=== PATIENT | female | born 1945 | race Caucasian/White ===

== ENCOUNTER 2025-08-06 13:00 | Outpatient (REF) | payer MEDICARE, SELFPAY ==
--- NOTE | 2025-08-06 13:04 | EMG_ITS ---
Chief complaint: Started noticing bilateral hand numbness a few months ago. Denies weakness. Denies neck pain. Started noticing left foot tingling more recently. No gait change. On exam, I did not note any atrophy, weakness or hyperreflexia. Reason for referral: Evaluate for neuropathy Referred by: Dr. Brewer Procedure done: Bilateral upper extremities NCS/EMG Precautions and/or limitations: None The limb temperature was monitored continuously and remained between 32-36 degrees C during the performance of the NCS. Nerve Conduction Studies Anti Sensory Summary Table ?Stim Site NR Onset (ms) Norm Onset (ms) Peak (ms) Norm Peak (ms) O-P Amp (?V) Norm O-P Amp Site1 Site2 Delta-0 (ms) Dist (cm) Yeison (m/s) Norm Yeison (m/s) Left Median Anti Sensory (2nd Digit) Wrist ? 3.3 4.3 <3.6 6.9 >10 Wrist 2nd Digit 3.3 14.0 42 Right Median Anti Sensory (2nd Digit) Wrist ? 4.3 5.4 <3.6 9.1 >10 Wrist 2nd Digit 4.3 14.0 33 Right Radial Anti Sensory (Thumb) Forearm ? 2.2 2.8 <3.1 10.1 Forearm Thumb 2.2 0.0 ? 2.4 3.1 9.9 Left Ulnar Anti Sensory (5th Digit) Wrist NR <3.7 >15.0 Wrist 5th Digit 14.0 Right Ulnar Anti Sensory (5th Digit) Wrist ? 2.9 3.7 <3.7 7.8 >15.0 Wrist 5th Digit 2.9 14.0 48 Motor Summary Table ?Stim Site NR Onset (ms) Norm Onset (ms) O-P Amp (mV) Norm O-P Amp iAmp (mV) Amp (1st) (%) Site1 Site2 Delta-0 (ms) Dist (cm) Yeison (m/s) Norm Yeison (m/s) Left Median Motor (Abd Poll Brev) Wrist ? 4.0 <3.9 6.0 >4.5 7.2 100.0 Elbow Wrist 5.0 19.5 39 >45 Elbow ? 9.0 5.0 6.3 83.3 Right Median Motor (Abd Poll Brev) Wrist ? 5.4 <3.9 7.0 >4.5 8.6 100.0 Elbow Wrist 4.5 20.0 44 >45 Elbow ? 9.9 6.5 8.3 92.9 Left Ulnar Motor (Abd Dig Minimi) Wrist ? 3.5 <3.0 4.3 >5 4.9 100.0 B Elbow Wrist 4.0 17.0 43 >45 B Elbow ? 7.5 3.4 4.2 79.1 A Elbow B Elbow 2.1 10.0 48 >45 A Elbow ? 9.6 3.2 4.0 74.4 Right Ulnar Motor (Abd Dig Minimi) Wrist ? 3.5 <3.0 4.9 >5 5.7 100.0 B Elbow Wrist 4.4 18.0 41 >45 B Elbow ? 7.9 4.3 5.4 87.8 A Elbow B Elbow 1.5 10.0 67 >45 A Elbow ? 9.4 4.4 5.5 89.8 Right Ulnar (FDI) Motor (FDI) Wrist ? 5.2 <3.0 10.2 >5 11.7 100.0 B Elbow Wrist 4.6 17.5 38 >45 B Elbow ? 9.8 9.5 11.1 93.1 A Elbow B Elbow 1.7 10.0 59 >45 A Elbow ? 11.5 9.2 10.8 90.2 EMG ?Side Muscle Nerve Root Ins Act Fibs Psw Amp Dur Poly Recrt Int Pat Comment Right 1stDorInt Ulnar C8-T1 Nml Nml Nml Nml Nml 0 Nml Complete Right FlexCarRad Median C6-7 Incr 1+ 1+ Nml Nml 0 Nml Complete Right FlexCarpiUln Ulnar C8,T1 Nml Nml Nml Nml Nml 0 Nml Complete Right Biceps Musculocut C5-6 Incr 1+ 1+ Nml Nml 0 Nml Complete Right Triceps Radial C6-7-8 Nml Nml Nml Nml Nml 0 Nml Complete Right Deltoid Axillary C5-6 Incr 1+ 1+ Nml Nml 0 Nml Complete Left 1stDorInt Ulnar C8-T1 Nml Nml Nml Nml Nml 0 Nml Complete Left FlexCarRad Median C6-7 Incr Nml Nml Nml Nml 0 Nml Complete crd Left FlexCarpiUln Ulnar C8,T1 Nml Nml Nml Nml Nml 0 Nml Complete Left Biceps Musculocut C5-6 Nml Nml Nml Nml Nml 0 Nml Complete Left Triceps Radial C6-7-8 Nml Nml Nml Nml Nml 0 Nml Complete Left Deltoid Axillary C5-6 Nml Nml Nml Nml Nml 0 Nml Complete Paraspinal EMG ?Side Muscle Nerve Root Ins Act Fibs Psw Comment Right Cervical Upper Rami Nml Nml Nml Right Cervical Mid Rami Incr 1+ 1+ Right Cervical Lower Rami Incr 1+ 1+ Left Cervical Upper Rami Nml Nml Nml Left Cervical Mid Rami Incr Nml Nml Left Cervical Lower Rami Incr 1+ 1+ FINDINGS: Right median motor nerve showed prolonged distal latency, normal amplitude and slow conduction velocity. Right ulnar motor nerve showed prolonged distal latency, small amplitude and slow conduction velocity distally. No conduction block across the elbow. Right median sensory nerve showed prolonged peak latencies and small amplitude. Right ulnar sensory nerve showed small amplitude. Right radial sensory nerve within normal. Left median motor nerve showed prolonged distal latency, normal amplitude and normal conduction velocity. Left ulnar motor nerve showed prolonged distal latency, normal amplitude and slow conduction velocity distally. No conduction block across the elbow. Left median sensory nerve showed prolonged peak latencies and small amplitude. Left ulnar sensory nerve absent response. Concentric needle EMG was performed in selected muscles of the bilateral upper extremities and cervical paraspinals. Study revealed signs of electric abnormalities as shown in the table above. Left FCR showed increased insertional activity, and CRDs. Right deltoid, biceps and FCR showed increased insertional activity, PSWs and fibrillations. Bilateral mid and lower cervical paraspinals showed increased insertional activity, PSWs and fibrillations. IMPRESSION: 1. This is an abnormal study. 2. 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 3. There are electrodiagnostic findings suggestive of C5-6 acute on chronic radiculopathy. CLINICAL COMMENT: Study above shows bilateral median neuropathy, consistent with Carpal Tunnel Syndrome. Also shows bilateral ulnar neuropathies, most likely chronic. Although, we should account for changes seen with advanced age. However I could not rule out, and it is concerning, that there were acute and chronic denervation seen on C5/C6 innervated muscles, suggestive of ongoing radiculopathy. Further clinical correlation recommended. Thank you for your kind referral. Lorene Morse MD, DONNIE Board Certified, [place] [employer] (ABPMR) Board Certified, [place] [employer] (ABEM) CODIN [phone] x 2 MTDD
--- OUTSIDE RECORDS SUMMARY | 2025-08-06 16:37 | XMS_ITS | Data Portability ---
Author Organization [place] - [facility], [facility] - INPATIENT Address [address] [place] [address] Care Team Providers Care Illustrator Set Name Role Phone RAJI JONESEMILIANO Primary Care Provider Assessment Encounter Date Assessment Date Assessment LastModified by Organization Details LastModified Time 10/01/2019 10/01/2019 IMPRESSION: Monica is a 73-year-old female who does have large irreparable rotator cuff tears on her bilateral shoulders. She is not interested in proceeding with surgical intervention. She is actually compensating quite well, and I do not feel that she would be completely satisfied with the outcome of shoulder replacement surgery at this time. I have suggested continued conservative management, including activity modification and exercises as well as possible cortisone injections. She is interested in proceeding with bilateral cortisone injections. We proceeded today. TREATMENT GIVEN: After discussion of the risks including, but not limited to infection, localized soreness and swelling, reaction to medications, the patient elected to proceed with a right subacromial and glenohumeral cortisone injection. Confirmed that the patient does not have history of prior adverse reactions, active infections, or relevant allergies. There was no erythema, or warmth, and the skin was clear. The skin was sterilized with alcohol & Betadine. [employer] Ultrasound was used to ensure accuracy of placement of the injection. A 25-gauge needle was used to inject 1 cc of Depo-Medrol (40 mg/mL) and 1 cc of 2% lidocaine under ultrasound guidance using sterile gel and a sterile probe using a posterior approach. Injection into the subacromial space was visualized and confirmed on ultrasound. Direction was turned to the glenohumeral joint. Topical anesthesia was achieved with 3 cc of 2% lidocaine on a 25-gauge needle. [employer] Ultrasound was used to ensure accuracy of placement of the injection. After re-prepping with Betadine, a 22-gauge spinal needle was used inject 2 cc of Depo-Medrol (40 mg/mL) and 3 cc of 2% lidocaine under ultrasound guidance into the glenohumeral joint with sterile gel and a sterile probe, through a medial approach. Injection was visualized and confirmed to be in the correct location on ultrasound. The injection was completed without complication and Band-Aids were applied. The patient tolerated the procedure well and was instructed to avoid strenuous activity for the next 24-48 hours and use ice, NSAIDs or Tylenol for pain as needed. The patient will call immediately with any signs of infection or allergic reaction. TREATMENT GIVEN: After discussion of the risks including, but not limited to infection, localized soreness and swelling, reaction to medications, the patient elected to proceed with a left subacromial and glenohumeral cortisone injection. Confirmed that the patient does not have history of prior adverse reactions, active infections, or relevant allergies. There was no erythema, or warmth, and the skin was clear. The skin was sterilized with alcohol & Betadine. [employer] Ultrasound was used to ensure accuracy of placement of the injection. A 25-gauge needle was used to inject 1 cc of Depo-Medrol (40 mg/mL) and 1 cc of 2% lidocaine under ultrasound guidance using sterile gel and a sterile probe using a posterior approach. Injection into the subacromial space was visualized and confirmed on ultrasound. Direction was turned to the glenohumeral joint. Topical anesthesia was achieved with 3 cc of 2% lidocaine on a 25-gauge needle. [employer] Ultrasound was used to ensure accuracy of placement of the injection. After re-prepping with Betadine, a 22-gauge spinal needle was used inject 2 cc of Depo-Medrol (40 mg/mL) and 3 cc of 2% lidocaine under ultrasound guidance into the glenohumeral joint with sterile gel and a sterile probe, through a medial approach. Injection was visualized and confirmed to be in the correct location on ultrasound. The injection was completed without complication and Band-Aids were applied. The patient tolerated the procedure well and was instructed to avoid strenuous activity for the next 24-48 hours and use ice, NSAIDs or Tylenol for pain as needed. The patient will call immediately with any signs of infection or allergic reaction. PLAN: She will follow up with me on an as-needed basis. [email or web address] Not available 2019 00:53:02 10/20/2020 10/20/2020 ImaginV (grashey, axillary, humerus) of bilateral shoulders demonstrate no degenerative changes. There is no superior migration humeral head, and Reyez's line is intact. Assessment/Plan: 75-year-old female presents with bilateral rotator cuff tears. At this point, Monica seems to be doing well with conservative treatment. We briefly discussed PRP, but I could not guarantee it would improve her shoulder pain, therefore we did not pursue PRP injection at this time. We proceed with bilateral intra-articular and subacromial injections under ultrasound guidance. She noted immediate postinjection relief. Please see procedure note. She will continue activities as tolerated, with modifications as needed. She will keep me apprised of her status, follow-up as needed for repeat injections. PROCEDURE: Bilateral shoulder injection MEDICATION: 2 mL Depo-Medrol 40 mg/1 mL, and 2 mL of 0.25% bupivacaine plain (glenohumeral), 1 mL Depo-Medrol 40 mg/1 mL and 1 mL 0.25% bupivacaine plain (subacromial) each shoulder TREATMENT GIVEN: I confirmed that the patient does not have a history of prior adverse reactions, active infections, or relevant allergies. There was no erythema or warmth, and the skin was clear. After discussion of the risks including, but not limited to infection, localized soreness and swelling, reaction to medications, the patient consented to proceeding with the procedure. Under sterile conditions, the shoulder was prepped with alcohol and Betadine. Sterile ultrasound gel and utilized the [employer] Ultrasound to ensure accurate needle placement. The skin was anesthetized with cold spray. Using a medial approach and a 20-gauge spinal needle, the glenohumeral injection was performed. The needle was then redirected to the subacromial space, placement confirmed with the ultrasound, and the subacromial injection was performed. Ultrasound images were scanned into the patient's chart. The injection was completed without complication and a Band-Aid was applied. The procedure was repeated on the opposite shoulder. The patient tolerated the procedure well and was instructed to avoid strenuous activity for the next 24-48 hours and use ice, NSAIDs, or Tylenol for pain as needed. This visit is a kmon-wq-wfln visit during the COVID-19 pandemic. Based on my clinical judgment, I felt that this visit could not be provided safely and appropriately via TeleHealth. Based on available information prior to presentation, the patient had a high risk of significant worsening and potential functional impairment affecting ADLs if the visit was not completed today. The patient was seen in the office after following PPE use, Workforce Safety, Patient Safety and Infection Control protocols for all services provided today in accordance with [facility] and CDC Guidelines. There was additional practice expense incurred due to the Public Health Emergency. This additional expense includes but is not limited to: - Additional clinical staff and medical technical project coordinator time for pre-screening - Time spent reviewing COVID social distancing guidelines, precautions, instructions, and signage - Patient symptom checking upon arrival - Application, removal, and purchasing of additional PPE - Additional cleaning of exam room, equipment, supplies, as well as cleaning supplies for that purpose. This note was dictated with Melly. Please excuse any errors in spelling/transcr iption, which may have changed the context of the sentence. [email or web address] Not available 02/25/2021 13:23:59 07/03/2023 07/03/2023 ASSESSMENT Right shoulder chronic cuff tear seen on MRI. On the left, I will get an MRI to assess her reason for pain. In the meantime, she requested a cortisone injection because she is having a lot of pain in the left side and also an MRI has not yet been done, so we will do the injection. I confirmed that the patient does not have a history of prior adverse reactions, active infections, or relevant allergies. There was no erythema or warmth, and the skin was clear. After discussion of the risks including, but not limited to infection, localized soreness and swelling, reaction to medications, the patient consented to proceeding with the regimen. Under sterile conditions with the use of alcohol and Betadine prep on the left shoulder and ethyl chloride spray on the skin, I applied sterile ultrasound gel and utilized the [employer] Ultrasound to ensure accurate needle placement. Topical anesthesia was achieved by use of ethyl chloride spray, followed by the placement of 2 cc of Kenalog, and 2 cc of 2% lidocaine into the glenohumeral joint and subacromial space without incident. The needle was held in plane with the curvilinear ultrasound probe. Ultrasound images were scanned into the patient's chart. The injection was completed without complication and a Band-Aid was applied. The patient tolerated the procedure well and was instructed to avoid strenuous activity for the next 24-48 hours and use ice, NSAIDs, or Tylenol for pain as needed. I will get a left shoulder MRI and I will see her back after the left shoulder MRI. [email or web address] Not available 07/04/2023 12:27:00 07/19/2024 07/19/2024 Imaging: A left hip MRI conducted at [facility] on 06/15/2024 was independently reviewed which demonstrates mild degeneration of the joints without full-thickness cartilage loss. There is tendinopathy of the abductors with low-grade partial-thicknes s tearing. Assessment: Lateral left hip pain due to abductor tendinopathy and partial-thicknes s tearing. Plan: The findings were reviewed with the patient. Discussed that I would recommend moving forward with conservative measures including Tenex. We discussed that ultimately surgery is a last resort and typically reserved for full-thickness tears or partial-thicknes s tears that have failed extensive conservative measures. We discussed the significant recovery of surgical intervention which she hopes to avoid. She will contact Dr. Barr to make plans to move forward with Tenex. All questions were answered. [email or web address] Not available 07/31/2024 20:07:11 Plan of Treatment Reminders Order Date Submit Date Provider Last Modified By Organization Details Last Modified Time Details Appointments None recorded. Lab None recorded. Referral None recorded. Procedures None recorded. Surgeries None recorded. Imaging MRI, shoulder, w/o contrast - R/o LT shoulder impingement PLEASE INCLUDE T2 SAGITAL and give patient a disk to hand carry to office *PLEASE CALL PATIENT TO SCHEDULE *PAS 2022 023 elana 2 [facility] ([facility]), [address], [place], [address], 3 09:20:00 Medication Orders Kenalog 40 mg/mL suspension for injection 2022 023 [email or web address] [facility] #[id number], [address] [place], [address], 4 10:39:33 Patient TargetsNo targets recorded. Patient InstructionsNo instructions recorded. Reason for Referral None Reported. Results Created Date Observation Date Name Description Value Unit Range Abnormal Flag Note LastModifiedBy Organization Detail LastModifiedTime 10/01/20 19 10/01/2019 josette MILLER http:/ [email or web address] ntegra tionPr ocesso r.[email or web address] ?CMD=O PENSTU DY&ACC ESSION =[id number], [address], 10/01/2019 14:56:45 10/01/20 19 10/01/2019 liliana MILLER http:/ [email or web address] ntegra tionPr ocesso r.aspx ?CMD=O PENSTU DY&ACC ESSION =[id number] [id number], [address], 10/01/2019 14:56:45 10/20/20 20 10/20/2020 josette MILLER http:/ [email or web address] ntegra tionPr ocesso r.aspx ?CMD=O PENSTU DY&ACC ESSION =76[id number] Shoulder [address], [address], 10/20/2020 17:21:25 10/20/20 20 10/20/2020 liliana MILLER http:/ [email or web address] ntegra tionPr ocesso r.aspx ?CMD=O PENSTU DY&ACC ESSION =[id number] [id number] [address] Shoulder [address], [address], 10/20/2020 17:21:25 12/01/19 21 10/20/2020 ultra sound bi nce for injec tion (PROC ) No observ ation record ed. [email or web address] Not Available 2020 10:55:33 12/01/19 21 10/20/2020 ultra sound bi nce for injec tion (PROC ) No observ ation record ed. [email or web address] Not Available 2020 10:57:22 12/01/19 21 10/20/2020 ultra sound bi nce for injec tion (PROC ) No observ ation record ed. Not Available 2020 10:58:09 08/21/20 23 08/20/2023 MRI, josette horvath, w/o contr ast [facility] Access ion Number : [id number] [address] t Name: Monica Sinclair Record Number : [id number] Date of : 1944 Date of Exam: 2022 Referr ing Physic sunitha: Rox Salas [facility] [address] [place] [address] Exam: MR Should er (C-) CPT 14040 - Left Room Descri ption: [place] GE Pion 3T MR Should er (C-) CPT 19903 CLINIC AL INDICA TION: Left should er pain TECHNI QUE: MRI of the left should er was perfor med withou t intrav enous contra st. COMPAR MILLER: None. FINDIN GS: Image qualit y is subopt imal due to motion artifa ct AC joint: Modera te hypert rophic change s of the AC joint. Acromi on is type I and demons trates latera l downsl oping. Rotato r cuff: Near full thickn ess tear of the supras pinatu s tendon is some intact is manager ior fibers . Torn fibers are retrac venu to the medial third of the lakisha l head. Severe subsca pulari s tendin osis. Infras pinatu s and teres minor tendon s appear intact . No eviden ce of rotato r cuff muscle atroph y or fatty infilt ration Edema signal within the is manager ior portio n of the deltoi d and keepin g with grade 1 strain Glenoi d labrum and biceps tendon : Tendin osis and probab le longit udinal split tear of the intra- articu lar biceps segmen t. The extra- articu lar portio n is visual ized within the bicipi pastor groove . No eviden ce of displa hugh labral tear on nonart hrogra phic evalua tion. Articu lar cartil age: The articu lar cartil age is of normal thickn ess. No focal defect s are seen. Bone: Subcho ndral cystic change s within the lakisha l head deep to the infras pinatu s and subsca pulari s footpr int. No eviden ce of hypoin tense fractu re line. Promin ent axilla ry lymph nodes measur ing up to 2.1 x 0.8 cm deep to the pector radha minor muscle (level 2) IMPRES SYED: Near full-t hickne ss tear of the supras pinatu s tendon with some intact is manager ior fibers remain ing Severe subsca pulari s tendin osis Tendin osis and probab le longit udinal split tear of the intra- articu lar biceps segmen t Grade 1 deltoi d muscle strain Promin ent axilla ry lymph nodes measur ing up to 2.1 x 0.8 cm the level 2 which are nonspe cific but may be reacti ve in nature . Clinic al correl ation is recomm ended. Electr onical ly Signed By: García faustinedrosian [facility] ([facility]) [address], [place], [address], 10/25/2024 11:28:16 07/19/20 24 MRI, hip, w/o contr ast No observ ation record ed. [email or web address] Not Available 2023 10:10:44 07/19/20 24 MRI, shoul yuliet, w/o contr ast No observ ation record ed. Not Available 2023 10:11:44 Result Notes Documentation Provider Name and Address Organization Details Recorded Time Xr, Shoulder : [email or web address]?CMD=OPENSTUDY& Viviana orona [place] - [facility] 10/01/2019 14:56:45 Xr, Humerus : [email or web address]?CMD=OPENSTUDY& Viviana orona [facility] [place] 10/01/2019 14:56:45 Xr, Shoulder : [email or web address]?CMD=OPENSTUDY& DONAVON LAI [address] [facility] [place] 10/20/2020 17:21:25 Xr, Humerus : [email or web address]?CMD=OPENSTUDY& DONAVON LAI [address] [facility] [place] 10/20/2020 17:21:25 Mri, Shoulder, W/o Contrast : [facility] Accession Number: [id number] Patient Name: Monica Sinclair Date of : 1945 Date of Exam: 08-20-2023 Referring Physician: [facility] [address] [place] [address] Exam: MR Shoulder (C-) CPT 10059 - Left Room Description: [address] MR Shoulder (C-) CPT 43666 CLINICAL INDICATION: Left shoulder pain TECHNIQUE: MRI of the left shoulder was performed without intravenous contrast. COMPARISON: None. FINDINGS: Image quality is suboptimal due to motion artifact AC joint: Moderate hypertrophic changes of the AC joint. Acromion is type I and demonstrates lateral downsloping. Rotator cuff: Near full thickness tear of the supraspinatus tendon is some intact posterior fibers. Torn fibers are retracted to the medial third of the humeral head. Severe subscapularis tendinosis. Infraspinatus and teres minor tendons appear intact. No evidence of rotator cuff muscle atrophy or fatty infiltration Edema signal within the posterior portion of the deltoid and keeping with grade 1 strain Glenoid labrum and biceps tendon: Tendinosis and probable longitudinal split tear of the intra-articular biceps segment. The extra-articular portion is visualized within the bicipital groove. No evidence of displaced labral tear on nonarthrographic evaluation. Articular cartilage: The articular cartilage is of normal thickness. No focal defects are seen. Bone: Subchondral cystic changes within the humeral head deep to the infraspinatus and subscapularis footprint. No evidence of hypointense fracture line. Prominent axillary lymph nodes measuring up to 2.1 x 0.8 cm deep to the pectoralis minor muscle (level 2) IMPRESSION: Near full-thickness tear of the supraspinatus tendon with some intact posterior fibers remaining Severe subscapularis tendinosis Tendinosis and probable longitudinal split tear of the intra-articular biceps segment Grade 1 deltoid muscle strain Prominent axillary lymph nodes measuring up to 2.1 x 0.8 cm the level 2 which are nonspecific but may be reactive in nature. Clinical correlation is recommended. Electronically Signed By: García orona [facility] [place] 10/25/2024 11:28:16 Problems Name Problem SNOMED Code Status Onset Date Resolution Date Notes Provider Name and Address Organization Details Recorded Time Osteoarthritis 181102260 Active 2018 Lonny orona [facility] [place] 9 16:03:14 Full thickness rotator cuff tear 404675537 Active 2019 LATOYA ORDAZ [address] [place] [address], [phone] [place] 0 14:01:06 Problem Notes None recorded. Procedures Surgical History Date Name Laterality Status Provider Name and Address Organization Details Recorded Time 10/14/19 90 Orthopaedic Surgery completed Leonor Crisostomo [facility] [place] 07/19/2024 10:28:33 10/14/19 88 Orthopaedic Surgery completed Cortney Dong [facility] [place] [facility] 07/03/2023 14:48:24 Imaging Results None recorded. Procedure Notes None recorded. Medical Equipment None Reported. Allergies Allergen ID Allergen Name Allergen Category Reaction Reaction Severity Criticality Documentation Date Start Date Code Code System Note Provider Name and Address Organization Details Recorded Time 681496 Demerol medicatio n Not available Not available Not available 07/19/2024 34145 1 RxNorm Renay orona [place] - [facility] 4 10:39:39 Medications Name Sig Start Date Stop Date Status Note LastModified by Organization Details LastModified Time azithromyc in 250 mg tablet 07/19 completed Not Available Not Available Not Available valacyclov ir 1 gram tablet 10/01 completed Not Available Not Available Not Available meloxicam 15 mg tablet TAKE 1 TABLET EVERY DAY BY ORAL ROUTE AFTER MEAL(S). active Not Available Not Available No t Available prednisone 20 mg tablet TAKE 2 TABLETS BY MOUTH EVERY DAY FOR 3 DAYS 07/19 completed Not Available Not Available Not Available Kenalog 40 mg/mL suspension for injection Take 2 mL by injectio n route. 07/19 completed US Guided Not Available Not Available Not Available ramipril 2.5 mg capsule Take 1 capsule every day by oral route. active Not Available Not Available No t Available mupirocin 2 % topical ointment APPLY TO AFFECTED AREA 3 TIMES A DAY 07/02 completed Not Available Not Available Not Available hydroxychl oroquine 200 mg tablet 07/02 completed Not Available Not Available Not Available estradiol 0.01% (0.1 mg/gram) vaginal cream PLEASE SEE ATTACHED FOR DETAILED DIRECTIO NS 07/19 completed Not Available Not Available Not Available albuterol sulfate HFA 90 mcg/actuat ion aerosol inhaler INHALE 2 PUFFS BY MOUTH 4 TIMES A DAY NEEDED FOR SHORTNES S OF BREATH OR WHEEZING FOR 14 DAYS 07/19 completed Not Available Not Available Not Available doxycyclin e hyclate 20 mg tablet 10/20 completed Not Available Not Available Not Available ondansetro n 4 mg disintegra ting tablet TAKE 1 TABLET BY MOUTH EVERY 8 HOURS NEEDED FOR NAUSEA 07/19 completed Not Available Not Available Not Available fluticason e propionate 50 mcg/actuat ion nasal spray,susp ension SPRAY 1 SPRAY INTO EACH NOSTRIL EVERY DAY FOR 30 DAYS 07/03 completed Not Available Not Available Not Available finasterid e 5 mg tablet 07/02 completed Not Available Not Available Not Available ramipril 5 mg capsule 07/19 completed Not Available Not Available Not Available naproxen 500 mg tablet TAKE 1 TABLET AFTER BREAKFAS T, AND 1 TABLET AFTER DINNER NEEDED FOR PAIN active Not Available Not Available No t Available ramipril 10 mg capsule active Not Available Not Available Not Available dutasterid e 0.5 mg capsule 10/01 completed Not Available Not Available Not Available moxifloxac in 0.5 % eye drops PLACE 1 DROP INTO SURGICAL EYE(S) FOUR TIMES DAILY START 1 DAY PRIOR TO SURGERY AND CONTINUE FOR 1 WEEK 07/19 completed Not Available Not Available Not Available rosuvastat in 20 mg tablet active Not Available Not Available Not Available nitrofuran toin monohydrat e/macrocry stals 100 mg capsule TAKE 1 CAPSULE BY MOUTH TWICE A DAY FOR 7 DAYS 07/19 completed Not Available Not Available Not Available BD Ultra-Fine Mini Pen Needle 31 gauge x 3/16 ONCE A DAY USE EVERYDAY X 90 DAYS 07/03 completed Not Available Not Available Not Available bromfenac 0.09 % eye drops PLACE 1 DROP INTO SURGICAL EYE(S) ONCE DAILY AND CONTINUE FOR 4 WEEKS AFTER SURGERY 07/19 completed Not Available Not Available Not Available Aspir-Low 07/19 completed Not Available Not Available Not Available hydrochlor othiazide 12.5 mg tablet TAKE 1 TABLET BY MOUTH EVERY DAY IN THE MORNING active Not Available Not Available No t Available diflupredn ate 0.05 % eye drops PLACE 1 DROP INTO SURGICAL EYE(S) TWICE DAILY START 1 DAY PRIOR TO SURGERY AND CONTINUE FOR 4 WEEKS 07/19 completed Not Available Not Available Not Available bimatopros t 0.03 % drops with applicator , eyelash base USE 1 APPLICAT ION ALONG UPPER EYELID MARGIN AT BASE OF EYELASHE S EXTERNAL LY ONCE A DAY 07/19 completed Not Available Not Available Not Available Saxenda 3 mg/0.5 mL (18 mg/3 mL) subcutaneo us pen injector INJECT 1.8MG SUBCUTAN EOUSLY ONCE A DAY 07/19 completed Not Available Not Available Not Available Repatha SureClick 140 mg/mL subcutaneo us pen injector active Not Available Not Available Not Available bromfenac 0.075 % eye drops PLACE 1 DROP INTO SURGICAL EYE(S) DAILY FOR 28 days 07/19 completed Not Available Not Available Not Available Linzess 72 mcg capsule TAKE 1 CAPSULE BY MOUTH EVERY DAY 07/19 completed Not Available Not Available Not Available Vitals Date Recorded Body height Body mass index (BMI) Body weight Provider Name and Address Organization Details Last Updated DateTime 07/03/2023 165.1 cm 26.6 kg/m2 46368.78 g Cortney Dong [facility] [place] 07/03/2023 14:48:11 Date Recorded Body height Body mass index (BMI) Body weight Provider Name and Address Organization Details Last Updated DateTime 07/19/2024 165.1 cm 25.5 kg/m2 10163.63 g Leonor Crisostomo [facility] [place] 07/19/2024 10:39:25 Date Recorded Body height Body mass index (BMI) Body weight Provider Name and Address Organization Details Last Updated DateTime 10/01/2019 165.1 cm 25.3 kg/m2 64509.04 g Asia Donaldson [facility] [place] 10/01/2019 13:11:01 Date Recorded Body height Body mass index (BMI) Body weight Provider Name and Address Organization Details Last Updated DateTime 10/20/2020 165.1 cm 27 kg/m2 43729.96 g Kiley Garcia [facility] [place] 10/20/2020 13:25:05 Social History Question Answer Notes LastModified by [employer] Details LastModified Time Tobacco Smoking Status Never Smoker Asia Donaldson [facility] [place] 10/01/2019 13:13:12 Auto Related Injury? No Information not available 07/03/2023 Work Related Injury? No Information not available 07/03/2023 Sex: Unknown Functional Status Question Answer Note LastModified by [employer] Details LastModified Time What is your level of alcohol consumption? None Information not available 10/01/2019 Do you or have you ever used smokeless tobacco? Never used smokeless tobacco Information not available 07/03/2023 What is your occupation? Retired Information not available 07/03/2023 Do you or have you ever used e-cigarettes or vape? Never used electronic cigarettes Information not available 10/01/2019 Mental Status None recorded. Family History Relationship Description Onset Age of this Age Resolved Age Notes LastModified by Organization Details LastModified Time Father No current problems or disability dcavedon Not available 10/01 13:12:40 Mother No current problems or disability dcavedon Not available 10/01 13:12:40 Medical History Condition Response Blood Clots / Phlebitis N HIV or AIDS N Depression or Anxiety N High Blood Pressure Y MRSA N Emphysema / Chronic Bronchitis N Any Other Significant Medical Issues N Reaction to General/Local Anesthesia N Blood Disorder: Anemia, clotting disorde r, etc. (please specify) N Weight Gain / Loss N Hepatitis / Jaundice N Diabetes: Type I or II (please specify) N Kidney / Bladder Infections N Heart Condition: Heart Attac k, Afib, Irregular Heartbeat, etc. (please specify) N Hearing Loss N Night Sweats N Seizures / Epilepsy N Cancer N Stroke Y Chemical Dependency / Alcoholism N Ulcer / Stomach Bleeding / Indigestion N Visual Loss or Glaucoma N Psoriasis / Skin Rash N Thyroid Disorder N Asthma / Shortness of Breath / Sleep Sap Gatherer ea (please specify) Y Pulmonary Embolism N Gynecological HistoryNo gynecological history recorded. Obstetrics History GPAL:G 0 P 0 0 0 0 Immunizations Vaccine Type Date Status Note Provider Nam e and Address Organization Details Recorded Time Influenza, split virus, quadrivalent, preservative 0 completed [facility] [place] 10/20/2020 13:25:34 Past Encounters Encounter ID Performer Location Encounter Start Date Encounter Closed Date Diagnosis/Indication Diagnosis SNOMED-CT Code Diagnosis ICD10 Code Diagnosis IMO Codes Diagnosis Note [id number] LATOYA RENEE [address] [address] 10/01/2019 12:20:04 10/01/2019 16:18:46 Osteoarthritis 546103387 M19.012 M19.011 [id number] LATOYA ORDAZ [facility] Office [address] [place] [address] 10/20/2020 13:01:31 10/20/2020 14:20:48 Full thickness rotator cuff tear 341627041 M75.102 [id number] LATOYA WU [address] [address] 07/03/2023 14:15:03 07/03/2023 15:15:19 Bursitis of left shoulder 4717523945 14667 M75.52 Bone spur of left shoulder 9709360884 59220 M25.712 Pain of le ft shoulder joint 2050746671 0570165 M25.512 Rupture of rotator cuff of left shoulder 3792601589 1924191 M75.524 [id number] LATOYA PERRY [facility] Office [address] [place] [id number] 07/19/2024 09:51:12 07/19/2024 14:48:45 Tendinitis of left gluteal tendon 8671301649 57570 M76.02 Health Concerns Section Related Observation LastModified by Organization Detai ls LastModified Time None Recorded Concern Status LastModified by Organization Details LastModified Time None Recorded Advance Directives Directive None Recorded Payers Insurance Date Sequence Insurance Name Policy Number Policy Hua Covered Member ID Hua Member ID Guarantor Name 12/03/2024 1 [facility] (MEDICARE REPLACEMENT/A DVANTAGE - PPO) [id number] Monica Castillo Yahir [id number] Monica Yahir 07/10/2024 1 [facility] [id number] Monica Castillo Hanselvo [id number] Monica Yahir Notes Date Note Type Note Provider Name and Address Organization Details Recorded Time 10/01/2019 text/html HX: Monica is a 73-year-old female who presents to clinic today for further evaluation of her bilateral shoulders, right worse than left. This has been an ongoing issue for her for quite some time, greater than 5 years. She relates it to mostly overuse, a lot of repetitive overhead and activities. She has been told that she is a candidate for shoulder replacement; however, she is not eager to lloyd into this option. She has had cortisone injections in the past that have worked well for her, last in 2016; however, nothing recently. She rates her pain as 7/10, and her shoulder about 35% of normal. She does have pinpoint tenderness on the lateral aspects of both shoulders that she says is alleviated by pressure. She still maintains good range of motion in both arms. MEDICATIONS: As listed in the chart and include Pro-Air and tobramycin drops. ALLERGIES: NKDA. LATOYA RENEE [address] [facility], [place], [address], [facility] [place] 12/25/2019 18:02:01 10/20/2020 text/html ROS as noted in the HPI 75-year-old female presents with bilateral rotator cuff tears. She is treated in the past with bilateral glenohumeral and subacromial cortisone injections by Ivett Lerner, which we performed a proximal and one year ago. She reports that her pain has returned. Rates it a 5/10. She notes that she lives alone, and has no new can really help her out, is trying to avoid any surgical intervention. She would also like to discuss the utility of PRP for her shoulder. LATOYA ORDAZ [address] [place], [address], [facility] [place] 02/25/2021 13:24:03 07/03/2023 text/html Monica comes in today for bilateral shoulders. On the right, she has an established chronic large cuff tear that was noted on an MRI. She notes that shoulder is doing okay on the left 1 however, she said she had such increased pain on that left side that she actually put in a sling last week. She comes in today for evaluation. Right shoulder x-rays for Monica show a high-riding humeral head and no OA. On the left however, shows good space between the humerus and the acromion, slightly lateral down slope to the acromion. LATOYA WU [address] [place], [address], [facility] [place] 07/04/2023 12:27:03 07/19/2024 text/html Monica is a very pleasant 78-year-old female who presents today for evaluation of her left hip. She reports decades of lateral left hip pain. She has been seen by Dr. Barr who recommended conservative measures such as Tenex. She presents today for a surgical consult and further discussion of conservative versus surgical treatment options. LATOYA PERRY [address] [place], [address], [facility] [place] 07/31/2024 20:14:12 OBGyn Episode No OBEpisode recorded.
--- OUTSIDE RECORDS SUMMARY | 2025-08-06 16:38 | XMS_ITS | Encounter Summary ---
Author Organization [facility] Address [address] [facility] [address] [place] [address] Phone Care Team Providers Care Technical Program Manager Name Role Phone Annita Brewer MD Primary Care Provider [phone] Pauline Alanis MD, DONNIE Primary Care Provider [phone] Annita Brewer MD Primary Care Provider [phone] Pauline Alanis MD, DONNIE Unavailable [phone] Encounter Details Date Type Department Care Team (Late st Contact Info) Description 05/01/2017 Procedure Pass [facility] [address] [place] [address] Social History Tobacco Use Types Packs/Day Years Used Date Smoking Tobacco: Never Comments Unknown Sex and Gender Information Value Date Recorded Sex Assigned at Not on file Legal Sex Female 6:01 PM EST Gender Identity Not on file Sexual Orientation Not on file documented as of this encounter Plan of Treatment Upcoming Encounters Date Type Department Care Team (Late st Contact Info) Description 09/29/2025 11:30 AM EST Follow-Up [facility] Veterans Rehabilitation Counselor Oncology 75 [facility], [address] [place] [address] Sharifa Vargas MD 75 [facility], [facility] [place] [address] [email or web address] documented as of this encounter Visit Diagnoses Not on filedocumented in this encounter Care Teams Technical Program Manager Relationship Specialty Start Date End Date Annita Brewer MD [address] [address] [email or web address] PCP - General 05/01/17 03/25/21 Pauline Alanis MD, DONNIE [address] [place] [address] [email or web address] PCP - General Internal Medicine 03/26/21 09/26/23 Annita Brewer MD [address] [address] [email or web address] PCP - General 09/27/23 Pauline Alanis MD, DONNIE [address] [place] [address] [email or web address] Internal Medicine 09/27/23 documented as of this encounter Additional Source Comments The information contained in this document represents components of the legal health record. It is not the complete legal health record.[facility]
--- OUTSIDE RECORDS SUMMARY | 2025-08-06 16:38 | XMS_ITS | Encounter Summary ---
Author Organization [facility] Address [address] [facility] [address] [place] [address] Phone Care Team Providers Care Social Work Instructor Name Role Phone Annita Brewer MD Primary Care Provider [phone] Pauline Alanis MD, DONNIE Primary Care Provider [phone] Annita Brewer MD Primary Care Provider [phone] Pauline Alanis MD, DONNIE Unavailable [phone] Encounter Details Date Type Department Care Team (Late st Contact Info) Description 05/01/2017 Procedure Pass [facility] [address] [place] [address] Social History Tobacco Use Types Packs/Day Years [...] Info) Description 09/29/2025 11:30 AM EST Follow-Up [facility] Chief Payroll Clerk Oncology 75 [facility], [address] [place] [address] Sharifa Vargas MD 75 Located Within [facility], [facility] [place] [address] [email or web address] documented as of this encounter Visit Diagnoses Not on filedocumented in this encounter Care Teams Social Work Instructor Relationship Specialty Start Date End Date Annita Brewer MD [address] [address] [email or web address] PCP - General 05/01/17 03/25/21 Pauline Alanis MD, DONNIE [address] [place] [address] [email or web address] PCP - General Internal Medicine 03/26/21 09/26/23 Annita Brewer MD [address] [address] [email or web address] PCP - General 09/27/23 Pauline Alanis MD, DONNIE [address] [place] [address] [email or web address] Internal Medicine 09/27/23 documented as of this encounter Additional Source Comments The information contained in this document represents components of the legal health record. It is not the complete legal health record.[facility]
--- OUTSIDE RECORDS SUMMARY | 2025-08-06 16:38 | XMS_ITS | Encounter Summary ---
Author Organization [facility] Address [address] [place] [address] [address] [place] [address] Phone Care Team Providers Care Hairspring Truer Name Role Phone Annita Brewer MD Primary Care Provider [phone] Pauline Alanis MD, DONNIE Primary Care Provider [phone] Annita Brewer MD Primary Care Provider [phone] Pauline Alanis MD, DONNIE Unavailable [phone] Encounter Details Date Type Department Care Team (Late Contact Info) Description 05/15/2018 Telephone [facility] Chute Worker Oncology [address], [address] [place] [address] Manasa Nam [address] [place] [address]. [place] [address] [email or web address] Social History Tobacco Use Types Packs/Day Years Used Date Smoking Tobacco: Never Comments Unknown Sex and Gender Information Value Date Recorded Sex Assigned at Not on file Legal Sex Female 6:01 PM EST Gender Identity Not on file Sexual Orientation Not on file documented as of this encounter Plan of Treatment Upcoming Encounters Date Type Department Care Team (Late Contact Info) Description 09/29/2025 11:30 AM EST Follow-Up [facility] Chute Worker Oncology [address] [place] [address], [address] [place] [address] Sharifa Vargas MD [address] [place] [address], [address] [place] [address] [email or web address] documented as of this encounter Visit Diagnoses Not on filedocumented in this encounter Care Teams Hairspring Truer Relationship Specialty Start Date End Date Annita Brewer MD [address] [address] [email or web address] PCP - General 05/01/17 03/25/21 Pauline Alanis MD, DONNIE [address] [place] [address] [email or web address] PCP - General Internal Medicine 03/26/21 09/26/23 Annita Brewer MD [address] [address] [email or web address] PCP - General 09/27/23 Pauline Alanis MD, DONNIE [address] [place] [address] [email or web address] Internal Medicine 09/27/23 documented as of this encounter Additional Source Comments The information contained in this document represents components of the legal health record. It is not the complete legal health record.[facility]
--- OUTSIDE RECORDS SUMMARY | 2025-08-06 16:38 | XMS_ITS | Encounter Summary ---
Author Organization [facility] Address [address] [facility] [address] [place] [address] Phone Care Team Providers Care Collision Technician Name Role Phone Annita Brewer MD Primary Care Provider [phone] Pauline Alanis MD, DONNIE Unavailable [phone] Encounter Details Date Type Department Care Team (Late st Contact Info) Description 10/28/2024 Telephone [facility] OBGYN Gynecology Resident [address] [place] [address] Amanda Bonner [address] [place] [address] [email or web address] Social History Tobacco Use Types Packs/Day Years Used Date Smoking Tobacco: Never Smokeless Tobacco: Never Alcohol Use Standard Drinks/Week Comments No 0 (1 standard drink = 0.6 oz pur e alcohol) Education Answer Date Recorded Are you interested in more education? Not on mike e 02/28/2023 Are you concerned about learning? Not on file 02/28/2023 No 02/28/2023 No 02/28/2023 Digital Access Answer Date Recorded No 03/19/2023 No 03/19/2023 Reliable internet access at home? Not on file 03/19/2023 Device with a working camera? Not on file Comments No Sex and Gender Information Value Date Recorded Sex Assigned at Not on file Legal Sex Female 6:01 PM EST Gender Identity Not on file Sexual Orientation Not on file documented as of this encounter Plan of Treatment Upcoming Encounters Date Type Department Care Team (Late st Contact Info) Description 09/29/2025 11:30 AM EST Follow-Up [facility] Powerhouse Mechanic Helper Oncology 75 [facility] [address], [address] [place] [address] Sharifa Vargas MD 75 [facility], [address] [place] [address] [email or web address] documented as of this encounter Visit Diagnoses Not on filedocumented in this encounter Additional Health Concerns Assessment Noted Time PHQ-2 Depression Total Score: 0 03/26/20 21 1:00 PM EDT documented as of this encounter Care Teams Collision Technician Relationship Specialty Start Date End Date Annita Brewer MD [address] [place] [address] [address] [place] [address] [email or web address] PCP - General 09/27/23 Pauline Alanis MD, DONNIE [address] [place] [address] [email or web address] Internal Medicine 09/27/23 documented as of this encounter Additional Source Comments The information contained in this document represents components of the legal health record. It is not the complete legal health record.[facility]
--- OUTSIDE RECORDS SUMMARY | 2025-08-06 16:38 | XMS_ITS | Encounter Summary ---
Author Organization [facility] Address [address] [place] [address] [place] [address] Phone Care Team Providers Care Nutritionist Name Role Phone Annita Brewer MD Primary Care Provider [phone] Pauline Alanis MD, DONNIE Unavailable [phone] Reason for Referral * MRI/CAT Scan - Closed Specialty Diagnoses / Procedures Referred By Contac t Referred To Contact Radiology Diagnoses Alzheimer's disease, early onset Procedures NM PET CT Brain Amyloid Annita Brewer MD [address] [address] Phone: tel: fax: [email or web address] Referral ID Status Reason Start Date Expiration Date Visits Re quested Visits Authorized [id number] Closed 05/29/2025 1 1 Encounter Details Date Type Department Care Team (Late st Contact Info) Description 05/29/2025 Ancillary Orders [facility], Pet/Ct - [address] [address] Annita Brewer MD [address] [address] Alzheimer's disease, early onset (Primary Dx) Social History Tobacco Use Types Packs/Day Years [...] Info) Description 09/29/2025 11:30 AM EST Follow-Up [facility] Copra Processor Oncology [address] [place] [address], [address] [place] [address] Sharifa Vargas MD [address] [place] [address], [facility] [address] [email or web address] documented as of this encounter Results * NM PET CT Brain Amyloid (06/03/2025 7:14 AM EDT) Anatomical Region Laterality Modality Head Positron Emissio n Tomography (PET) Narrative 06/03/2025 7:14 AM EDT BARRY PETCT us Annita Brewer MD IM NM PET Final Result documented in this encounter Visit Diagnoses Diagnosis Alzheimer's disease, early onset- Primary Alzheimer's disease Alzheimer's disease, early onset Alzheimer's disease documented in this encounter Additional Health Concerns Assessment Noted Time PHQ-2 Depression Total Score: 0 03/26/20 21 1:00 PM EDT documented as of this encounter Care Teams Nutritionist Relationship Specialty Start Date End Date Annita Brewer MD [address] [place] [address] [email or web address] PCP - General 09/27/23 Pauline Alanis MD, DONNIE [address] [place] [address] [email or web address] Internal Medicine 09/27/23 documented as of this encounter Additional Source Comments The information contained in this document represents components of the legal health record. It is not the complete legal health record.[facility]
--- OUTSIDE RECORDS SUMMARY | 2025-08-06 16:38 | XMS_ITS | Clinical Summary ---
Author Organization [facility] Address [address] [address] Phone Care Team Providers Care Honing Machine Operator Tool Name Role Phone Annita Brewer MD Primary Care Provider [phone] Pauline Alanis MD, DONNIE Unavailable [phone] Allergies Active Allergy Reactions Criticality Noted Date Comments Demerol (Meperidine) Hives,Vomiting High 05/01/2017 Medications aspirin 81 MG EC tablet Take 81 mg by mouth daily. Active cholecalciferol (VITAMIN D3) 4,000 unit tablet Take 1,000 Units by mouth daily. Active rosuvastatin (CRESTOR) 10 MG tablet Take 10 mg by mouth daily. Active naproxen (NAPROSYN) 500 MG tabletIndicatio ns:Nontraumatic complete tear of left rotator cuff Take 1 tablet after breakfast, and 1 tablet after dinner as needed for pain 60 tablet 3 3 Active moxifloxacin (VIGAMOX) 0.5 % ophthalmic solution Place 1 drop into the right eye 4 (four) times a day. 3 mL 3 4 Active difluprednate (DUREZOL) 0.05 % Drop Place 1 drop into the right eye 2 (two) times a day. 5 mL 3 4 Active ramipriL (ALTACE) 1.25 MG capsule Take 1.25 mg by mouth daily. Active bromfenac (BROMDAY) 0.09 % ophthalmic solution Place 1 drop into the left eye daily. Place 1 drop in the Left Eye prior to surgery and continue for 4 weeks after surgery. (Surgery Date: 04/04/24 ) 5 mL 4 4 Active moxifloxacin (VIGAMOX) 0.5 % ophthalmic solution Place 1 drop into the left eye 4 (four) times a day. Place 1 drop in the Left Eye four times a day starting 1 day prior to surgery and continue for 1 week. (Surgery Date: 04/04/24 ) 3 mL 1 4 Active difluprednate (DUREZOL) 0.05 % Drop Place 1 drop into the left eye 2 (two) times a day. 1 drop in the Left Eye 2 times a day starting 1 day prior to surgery and to continue 4 weeks. (Surgery Date: 04/04/24 ) 5 mL 3 4 Active estradioL (ESTRACE) 0.01 % (0.1 mg/gram) vaginal cream Place 2 g vaginally daily. Insert 1 gram vaginally daily for the first 2 weeks, followed by 1 gram twice weekly. (Please stop usage 3 days before your next embedded software architect appointment to minimize the possibility of the cream interfering with the doctor's examination.) 42.5 g 6 4 Active Active Problems No known active problems Encounters Date Type Department Care Team Description 05/29/2025 5:30 PM EDT - 05/29/2025 11:59 PM EDT Hospital Encounter [address] [address] Annita Brewer MD Discharge Disposition: Home or Self Care 05/29/2025 Ancillary Orders [address] [address] Annita Brewer MD Alzheimer's disease, early onset (Primary Dx) from Last 3 Months Immunizations Immunization Administration Dates Next Due COVID-19 (Pre-08/14) Moderna Vaccine, mRNA, PF 0 12/10/2020,11/12/2020 Influenza High-Dose Trivalent Preservative Free IM 07/29/2016,10/22/2015 Influenza Quadrivalent Adjuvanted Preservative F ree IM 07/16/2020 Influenza Quadrivalent w/ Preservative IM 2019 Influenza Trivalent Adjuvanted Preservative free IM 08/13/2018 Pneumococcal polysaccharide PPSV23 10/22/2015 Zoster recombinant 03/07/2018,12/05/2017 Social History Tobacco Use Types Packs/Day Years Used Date Smoking Tobacco: Never Smokeless Tobacco: Never Tobacco Cessation:Counseling Given: Not Answered Alcohol Use Standard Drinks/Week Comments No 0 [...] on file Sexual Orientation Not on file Last Filed Vital Signs Vital Sign Reading Time Taken Comments Blood Pressure 138/67 11/04/2024 1:04 PM EST Pulse 67 11/04/2024 1:04 PM EST Temperature 36.6 C (97.9 F) 04/04/2024 9:21 AM EDT Respiratory Rate 14 04/04/2024 10:12 AM EDT Oxygen Saturation 97% 04/04/2024 10:12 AM EDT Inhaled Oxygen Concentration - - Weight 68 kg (150 lb) 11/04/2024 1:04 PM EST Height 165.1 cm (5' 5 ) 11/04/2024 1:04 PM EST Body Mass Index 24.96 11/04/2024 1:04 PM EST Plan of Treatment Upcoming Encounters Date Type Department Care Team ([facility] st Contact Info) Description 09/29/2025 11:30 AM EST Follow-Up [facility] Fractionating Still Operator Oncology [address] [place] [address], [address] [place] [address] Sharifa Vargas MD [address] [place] [address], [facility] [place] [address] [email or web address] Health Maintenance Due Date Last Done Comments CREATININE LEVEL 1944 LIPID PANEL 1944 POTASSIUM LEVEL 1944 OSTEOPOROSIS SCREENING INITIAL (ONE-TIME) 2009 RSV VACCINE (1 - 1-dose 75+ series) 2019 DEPRESSION SCREENING 03/26/2022 03/26/2021 INFLUENZA VACCINE (#1) 2025 , 08/03/2022, 07/15/2021, Additional history exists COVID-19 VACCINE ( season) 2025 08/19/2023, 02/23/2022, 09/03/2021, Additional history exists Adult Td,Tdap Booster 01/07/2034 01/08/2024 ZOSTER VACCINES Completed 03/07/2018, 12/05/2017 PNEUMOCOCCAL VACCINES (50+ years) Completed 01/08/2024, 10/22/2015 SMOKING STATUS SCREENING (Once After 26 Yrs) Completed 04/04/2024 HEPATITIS A VACCINES Aged Out No long er eligible based on patient's age to complete this topic HIB VACCINES Aged Out No longer eligi ble based on patient's age to complete this topic MENINGOCOCCAL VACCINES (ACWY) Aged Out No longer eligible based on patient's age to complete this topic MENINGOCOCCAL VACCINES (B) Aged Out N o longer eligible based on patient's age to complete this topic Medical Devices Implanted Type Area Computer Operations Technician Device Identifier Shelf Expiration Date Model / Serial / Lot Lens Intraocular Sofport [id number] 19.5d-03/21/2024 Implanted: 024 (Quantity not on file) Right: Eye BAUSCH 11/22/2028 [id number] 19.5D / / Lens Intraocular Sofport [id number] 20.0d-04/04/2024 Implanted: 024 (Quantity not on file) Left: Eye BAUSC 12/20/2028 [id number] / / Procedures Procedure Name Priority Date/Time Associated Diagnosis Comments NM PET CT BRAIN AMYLOID Routine 06/03/2025 7:14 AM EDT Alzheimer's disease, early onset from Last 3 Months Results * NM PET CT Brain Amyloid (06/03/2025 7:14 AM EDT) Anatomical Region Laterality Modality Head Positron Emissio n Tomography (PET) Narrative 06/03/2025 7:14 AM EDT ASHA PETCT Annita Brewer MD IMG NM PET Final Result from Last 3 Months Insurance [facility] REPLACEMENT MEDICARE REPLACEMENT MEDIC[place] [address] [place] [address] MEDICARE REPLACEMENT MEDICARE REPLACEMENT MEDICARE REPLACEMENT MEDICARE REPLACEMENT MEDICARE REPLACEMENT MEDICARE REPLACEMENT MEDICARE REPLACEMENT Care Teams Honing Machine Operator Tool Relationship Specialty Start Date End Date Annita Brewer MD [address] [address] [email or web address] PCP - General 09/27/23 Pauline Alanis MD, DONNIE [address] [place] [id number] [email or web address] Internal Medicine 09/27/23 Additional Source Comments The information contained in this document represents components of the legal health record. It is not the complete legal health record.[facility]
--- OUTSIDE RECORDS SUMMARY | 2025-08-06 16:39 | XMS_ITS | Encounter Summary ---
Author Organization [facility] Address [address] [place] [phone] Care Team Providers Care Machining Department Supervisor Name Role Phone Annita Brewer MD Primary Care Provider [phone] Reason for Referral * Imaging (Routine) - Closed Specialty Diagnoses / Procedures Referred By Contcory patrick Referred To Contact Diagnostic Radiology Procedures MRI Brain without IV Contrast and MRA Head without IV Contrast [facility] SCHEDULING [address] [place] [address] Phone: tel: Referral ID Status Reason Start Date Expiration Date Visits Re quested Visits Authorized [id number] Closed 05/07/2020 05/07/2021 1 1 Encounter Details Date Type Department Care Team (Late st Contact Info) Description 05/07/2020 Scanned Document [facility] SCHEDULING [address] [place] [address] Malcolm Arroyo . Social History Tobacco Use Types Packs/Day Years Used Date Smoking Tobacco: Never Smokeless Tobacco: Never Alcohol Use Standard Drinks/Week Comments Never 0 (1 standard drink = 0.6 oz pur e alcohol) AUDIT-C Answer Date Recorded Frequency of Alcohol Consumption Never 05/11/2020 Average Number of Drinks Not on file 020 Frequency of Binge Drinking Not on file 04/23 Comments Unknown Sex and Gender Information Value Date Recorded Sex Assigned at Not on file Legal Sex Female 9:05 AM EDT Gender Identity Not on file Sexual Orientation Not on file documented as of this encounter Plan of Treatment Not on file documented as of this encounter Procedures Procedure Name Priority Date/Time Associated Diagnosis Comments MRI BRAIN WO IV CONTRAST INC L MRA HEAD WO IV CONTRAST Routine 05/06/2020 documented in this encounter Results * MRI Brain without IV Contrast and MRA Head without IV Contrast (05/06/2020) Anatomical Region Laterality Modality Head, Vascular, Ortho Head, RCC Brain Magnetic Resonance us Historical Provider IMG MRI ORDERABLES Final Res ult documented in this encounter Visit Diagnoses Not on filedocumented in this encounter Care Teams Machining Department Supervisor Relationship Specialty Start Date End Date Annita Brewer MD PCP - General Internal Medicine 01/03/19 documented as of this encounter
--- OUTSIDE RECORDS SUMMARY | 2025-08-06 16:39 | XMS_ITS | Encounter Summary ---
Author Organization [facility] Address [address] [place] [phone] Care Team Providers Care Plexiglas Former Name Role Phone Annita Brewer MD Primary Care Provider [phone] Encounter Details Date Type Department Care Team (Late st Contact Info) Description 07/26/2021 Scanned Document [facility] [address] [facility] [address] [facility] [place], [place] [address] Kota Hanks MD [address] [place] [phone] Social History Tobacco Use Types Packs/Day Years [...] on file documented as of this encounter Visit Diagnoses Not on filedocumented in this encounter Care Teams Plexiglas Former Relationship Specialty Start Date End Date Annita Brewer MD PCP - General Internal Medicine 01/03/19 documented as of this encounter
--- OUTSIDE RECORDS SUMMARY | 2025-08-06 16:39 | XMS_ITS | Encounter Summary ---
Author Organization [facility] Address [address] [place] [phone] Care Team Providers Care Psychologist Social Name Role Phone Annita Brewer MD Primary Care Provider [phone] Encounter Details Date Type Department Care Team (Late st Contact Info) Description 06/23/2021 Scanned Document [facility] [address] [facility] [address] [facility] Lower [place], [place] [address] Kota Hanks MD [address] [place] [phone] Social History Tobacco Use Types Packs/Day Years [...] on filedocumented in this encounter Care Teams Psychologist Social Relationship Specialty Start Date End Date Annita Brewer MD PCP - General Internal Medicine 01/03/19 documented as of this encounter
--- OUTSIDE RECORDS SUMMARY | 2025-08-06 16:40 | XMS_ITS | Encounter Summary ---
Author Organization [facility] Address [address] [place] [phone] Care Team Providers Care Stem Mounter Name Role Phone Annita Brewer MD Primary Care Provider [phone] Encounter Details Date Type Department Care Team (Late st Contact Info) Description 01/03/2019 Scanned Document [facility] [place] [address] [facility] [address] [place], [place] [id number] Kota Hanks MD [address] [place] [phone] Social History Tobacco Use Types Packs/Day Years Used Date Smoking Tobacco: Never Assessed Comments Unknown Sex and Gender Information Value Date Recorded Sex Assigned at Not on file Legal Sex Female 9:05 AM EDT Gender Identity Not on file Sexual Orientation Not on file documented as of this encounter Plan of Treatment Not on file documented as of this encounter Visit Diagnoses Not on filedocumented in this encounter Care Teams Stem Mounter Relationship Specialty Start Date End Date Annita Brewer MD PCP - General Internal Medicine 01/03/19 documented as of this encounter
--- OUTSIDE RECORDS SUMMARY | 2025-08-06 16:40 | XMS_ITS | Clinical Summary ---
Author Organization [address] Address [address] [place] [phone] Care Team Providers Care Packerhead Machine Operator Name Role Phone Annita Brewer MD Primary Care Provider [phone] Allergies Active Allergy Reactions Criticality Noted Date Comments Meperidine Hives,Vomiting High 05/01/2017 Other reaction(s): rash, vomiting Medications aspirin 81 MG EC tablet Take 81 mg by mouth Active cholecalciferol, vitamin D3, 100 mcg (4,000 unit) Tab Take 1,000 Units by mouth Active meloxicam (MOBIC) 7.5 MG tablet Take 1 tablet (7.5 mg total) by mouth. 05/01/20 17 Active doxycycline (PERIOSTAT) 20 mg tablet Active REPATHA SURECLICK 140 mg/mL pen injector 03/11/20 20 Active finasteride (PROSCAR) 5 mg tablet 12/14/19 20 Active hydroCHLOROthiaz nemesio (HYDRODIURIL) 12.5 mg tablet 04/08/20 20 Active hydrOXYchloroQUI NE (PLAQUENIL) 200 mg tablet 01/13/20 20 Active mupirocin (BACTROBAN) 2 % ointment 03/11/20 20 Active bimatoprost (LATISSE) 0.03 % ophthalmic solution bimatoprost 0.03 % drops with applicator, eyelash base INSTILL 1 DROP INTO AFFECTED EYE IN THE EVENING ONCE DAILY Active rosuvastatin (CRESTOR) 20 mg tablet 03/06/20 20 Active SAXENDA 3 mg/0.5 mL (18 mg/3 mL) subcutaneous injection pen DIRECTED SUBCUTANEOUSLY ONCE A DAY 05/27/20 21 Active magnesium oxide 500 mg tablet Active polyethylene glycol (GLYCOLAX; MIRALAX) 17 gram/dose powder 1 packet mixed with 8 ounces of fluid Active mv,calcium,min/i evon/folic/vitK (MULTI FOR HER ORAL) as directed Active cyanocobalamin 500 MCG tablet 1 tablet Activ e ascorbic acid, vitamin C, (VITAMIN C) 100 mg tablet Active BD ULTRA-FINE MINI PEN NEEDLE 31 gauge x 3/16 Ndle 07/28/20 21 Active ramipriL (ALTACE) 2.5 mg capsule 07/15/20 22 Active triamcinolone (KENALOG) 0.1 % cream APPLY 1 APPLICATION ON THE SKIN TWICE A DAY 04/29/20 22 Active Active Problems Problem Noted Date Diagnosed Date Carotid artery stenosis 08/15/2022 Age related osteoporosis 08/23/2021 Alopecia 08/23/2021 Chronic obstructive pulmonary disease 08/23/2021 Hemorrhage of colon due to diverticulosis 2020 History of cervical dysplasia 08/23/2021 Mixed hyperlipidemia 08/23/2021 Personal history of transien t ischemic attack (TIA), and cerebral infarction without residual deficits 08/23/2021 Psoriasis vulgaris 08/23/2021 Chronic kidney disease due to hypertension 08/23 Stage 2 chronic kidney disease 08/23/2021 Chronic venous hypertension (idiopathic) without complications of left lower extremity 08/23/2021 Varicose veins of lower extremity 08/23/2021 Vitamin D deficiency 08/23/2021 Primary osteoarthritis 08/23/2021 Full thickness rotator cuff tear 10/20/2020 Osteoarthritis 10/01/2019 Cerebral aneurysm, nonruptured Overview (03/16/2019): 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 Family History Medical History Relation Name Comments Colon cancer Father Throat cancer Father COPD Mother Colon cancer Paternal Grandfather Relation Name Status Comments Father Mother Paternal Grandfather Social History Tobacco Use Types Packs/Day Years [...] Sign Reading Time Taken Comments Blood Pressure 126/82 03/11/2019 1:22 PM EDT Pulse - - Temperature - - Respiratory Rate - - Oxygen Saturation - - Inhaled Oxygen Concentration - - Weight 68 kg (150 lb) 08/19/2024 7:46 AM EDT Height 165.1 cm (5' 5 ) 08/19/2024 7:46 AM EDT Body Mass Index 24.96 08/19/2024 7:46 AM EDT Plan of Treatment Health Maintenance Due Date Last Done Comments HIV screening 1957 Diabetes screening 1962 Tetanus adult (Td q 10,TDAP once) 1964 Lipid disorder screening 1984 Osteoporosis screening (bone density) 2009 Pneumococcal Vaccine (50+ years) (2 of 2 - PCV) 10/22/2016 10/22/2015 RSV Immunization (1 - 1-dose 75+ series) 2019 Influenza vaccine 05/23/2025 07/16/2020, , 08/13/2018, Additional history exists Covid-19 vaccine series (2024- season) 2025 08/12/2021, 12/10/2020, 11/12/2020 Shingles vaccine (Shingrix) Completed 03/07/2018, 0 12/05/2017 Breast cancer screening Discontinued Cervical cancer screening Discontinued Colon cancer screening, Colonoscopy Discontinued Meningococcal B Vaccine Aged Out No l onger eligible based on patient's age to complete this topic Meningococcal Vaccine Aged Out No celestina rneato eligible based on patient's age to complete this topic Insurance [facility] MGD MGD MGD Care Teams Packerhead Machine Operator Relationship Specialty Start Date End Date Annita Brewer MD PCP - General Internal Medicine 01/03/19
--- OUTSIDE RECORDS SUMMARY | 2025-08-06 16:40 | XMS_ITS | Clinical Summary ---
Author Organization [facility] Address [address] [place] [address] Phone Care Team Providers Care Bath Design Sales Consultant Name Role Phone Annita Brewer MD Primary Care Provider [phone] Encounters Date Type Department Care Team Description 06/19/2025 7:08 AM EDT - 06/19/2025 11:59 PM EDT Hospital Encounter [facility] Bone Density [address] [place] [phone] Age-related osteoporosis without current pathological fracture Discharge Disposition: Home or Self Care 05/19/2025 7:17 AM EDT - 05/19/2025 11:59 PM EDT [facility]counter [facility] [address] [phone] Encounter for screening mammogram for malignant neoplasm of breast; Family history of malignant neoplasm of breast Discharge Disposition: Home or Self Care from Last 3 Months Family History Medical History Relation Name Comments Breast cancer Mother Relation Name Status Comments Mother Social History Tobacco Use Types Packs/Day Years Used Date Smoking Tobacco: Never Assessed Comments No Sex and Gender Information Value Date Recorded Sex Assigned at Female 03/12/2025 11:27 AM EDT Legal Sex Female 3:13 PM EST Gender Identity Female 03/12/2025 11:27 AM EDT Sexual Orientation Straight 03/12/2025 11 :27 AM EDT Obstetrics History Last Filed Vital Signs Vital Sign Reading Time Taken Comments Blood Pressure - - Pulse - - Temperature - - Respiratory Rate - - Oxygen Saturation - - Inhaled Oxygen Concentration - - Weight 70.3 kg (155 lb) 05/19/2025 7:46 AM EDT Height 165.1 cm (5' 5 ) 05/19/2025 7:46 AM EDT Body Mass Index 25.79 05/19/2025 7:46 AM EDT Plan of Treatment Health Maintenance Due Date Last Done Comments RSV Immunization Adult Patients (1 - 1-dose 75+ series) 2019 Cholesterol Screening (Lipid Panel) 09/21/2022 Falls Risk Assessment 09/21/2022 Medicare Annual Wellness Visit 09/21/2022 Social Influencers of Health Screening 09/21/2022 Depression Screening 10/23/2024 COVID-19 Vaccine ( season) 2025 08/19/2023, 02/23/2022, 09/03/2021, Additional history exists Influenza Vaccine (#1) 2025 , 08/03/2022, 07/15/2021, Additional history exists Hypertension/CHF/CAD Annual BMP Blood Test 02/03/2026 02/03/2025, 01/27/2025, 01/24/2025 DTaP,Tdap,and Td Vaccines (3 - Td or Tdap) 01/07/2034 01/08/2024, 06/26/2014 Osteoporosis Screening (Bone Density Screening) 06/19/2035 06/19/2025, 11/24/2022, 07/16/2020 Zoster Vaccines Completed 03/07/2018, 11/23, 10/23/2009 Pneumococcal Vaccine: 50+ Years Completed 01/08/2024, 10/22/2015, 10/22/2015, Additional history exists HIB Vaccines Aged Out No longer eligi ble based on patient's age to complete this topic HPV Vaccines Aged Out No longer eligi ble based on patient's age to complete this topic Hepatitis A Vaccines Aged Out No long er eligible based on patient's age to complete this topic Hepatitis B Vaccines Aged Out No long er eligible based on patient's age to complete this topic IPV Vaccines Aged Out No longer eligi ble based on patient's age to complete this topic MMR Vaccines Aged Out No longer eligi ble based on patient's age to complete this topic Meningococcal ACWY Vaccine Aged Out N o longer eligible based on patient's age to complete this topic Meningococcal B Vaccine Aged Out No l onger eligible based on patient's age to complete this topic RSV Immunization Patients Under 20 months Aged Out No longer eligible based on patient's age to complete this topic Varicella Vaccines Aged Out No longer eligible based on patient's age to complete this topic Procedures Procedure Name Priority Date/Time Associated Diagnosis Comments BD BONE DENSITY DXA AXIAL SKELETON Routine 06/19/2025 7:48 AM EDT Age-related osteoporosis without current pathological fracture MG MAMMO DIGITAL SCREENING W ASCENCION BILAT Routine 05/19/2025 7:48 AM EDT Encounter for screening mammogram for malignant neoplasm of breast Family history of malignant neoplasm of breast BASIC METABOLIC PANEL Routine 02/03/2025 8:35 AM EDT Essential (primary) hypertension Hyperlipidemia, unspecified from Last 3 Months or Most Recently Relevant to Health Maintenance Results * BD Bone Density DXA Axial Skeleton (06/19/2025 7:48 AM EDT) Anatomical Region Laterality Modality Wrist, Hip, L-spine Bone Densito metry 06/19/2025 8:15 AM EDT Impressions 06/19/2025 8:19 AM EDT 1. Osteopenia. There has been an increase of 0.5% in bone mineral density in the lumbar spine since the prior examination of 11/23/2022. There has been a decrease of 1.7% in bone mineral density in the right femur and a decrease of 1.9% in bone mineral density in the left femur. 2. FRAX analysis yields a 10-year probability of major osteoporotic fracture of 43.0% and a 10-year probability of hip fracture of 28.8%. Code 92062 -------- FINAL REPORT -------- Dictated By: Gio Armas Dictated Date: 06/19/2025 08:15 ET Assigned Physician: Gio Armas Reviewed and Electronically Signed By: Gio Armas Signed Date: 06/19/2025 08:19 ET Workstation ID: [id number] Transcribed By: Self Edit Transcribed Date: 06/19/2025 08:17 ET Narrative 06/19/2025 8:19 AM EDT HISTORY: The patient is an 79-year-old postmenopausal female with clinical concern for metabolic bone disease. FINDINGS: Dual energy x-ray absorptiometry of the lumbar spine and femurs is performed. The mean bone mineral density at L1-L4 is 0.999 gm/cm2 which is 85% of that of young normals and 100% of that of age matched controls. This yields a T-score of -1.5 and a Z-score of 0.0 which is diagnostic of osteopenia. The mean bone mineral density of the femurs bilaterally is 0.788 gm/cm2 which is 78% of that of young normals and 101% of that of age matched controls. This yields a T-score of -1.7 and a Z-score of 0.1 which is diagnostic of osteopenia. The T-score of the right femoral neck is -2.3 and that of the left femoral neck is -2.4 which is diagnostic of osteopenia. Procedure Note Gio Armas MD - 06/19/2025 HISTORY: The patient is an 79-year-old postmenopausal female withclinical concern for metabolic bone disease. FINDINGS: Dual energy x-ray absorptiometry of the lumbar spine and femursis performed. The mean bone mineral density at L1-L4 is 0.999 gm/cm2 whichis 85% of that of young normals and 100% of that of age matched controls.This yields a T-score of -1.5 and a Z-score of 0.0 which is diagnostic ofosteopenia. The mean bone mineral density of the femurs bilaterally is 0.788 gm/lb4kslpo is 78% of that of young normals and 101% of that of age matchedcontrols. This yields a T-score of -1.7 and a Z-score of 0.1 which isdiagnostic of osteopenia. The T- score of the right femoral neck is -2.3and that of the left femoral neck is -2.4 which is diagnostic ofosteopenia. IMPRESSION: 1. Osteopenia. There has been an increase of 0.5% in bone mineral densityin the lumbar spine since the prior examination of 11/23/2022. There hasbeen a decrease of 1.7% in bone mineral density in the right femur and adecrease of 1.9% in bone mineral density in the left femur. 2. FRAX analysis yields a 10-year probability of major osteoporoticfracture of 43.0% and a 10-year probability of hip fracture of 28.8%. Code 10771 -------- FINAL REPORT -------- Dictated By: Gio Armas Dictated Date: 06/19/2025 08:15 ET Assigned Physician: Gio Armas Reviewed and Electronically Signed By: Gio Armas Signed Date: 06/19/2025 08:19 ET Workstation ID: [id number] Transcribed By: Self Edit Transcribed Date: 06/19/2025 08:17 ET us Annita Brewer MD IMRay DXA PROCEDURES Final Resul t * MG Mammo Digital Screening w Ascencion bilat (05/19/2025 7:48 AM EDT) Anatomical Region Laterality Modality Breast Bilateral Mammography 05/19/2025 12:3 2 PM EDT Impressions 05/19/2025 12:44 PM EDT No mammographic evidence of malignancy. No suspicious interval change. A negative mammogram in the presence of a clinically suspicious palpable abnormality does not preclude the possibility of malignancy or alter the indications for biopsy. ASSESSMENT: BI-RADS 1: NEGATIVE RECOMMENDATION(S): 1: Routine screening mammogram BILATERAL in 1 year. [facility] location[facility] [address], [address] -------- FINAL REPORT -------- Dictated By: Miguelangel Alcaraz Dictated Date: 05/19/2025 12:32 ET Assigned Physician: Miguelangel Alcaraz Reviewed and Electronically Signed By: Miguelangel Alcaraz Signed Date: 05/19/2025 12:44 ET Workstation ID: [id number] Transcribed By: Self Edit Transcribed Date: 05/19/2025 12:32 ET Narrative 05/19/2025 12:44 PM EDT EXAM: SCREENING MAMMOGRAPHY, BILATERAL HISTORY: SCREENING. Mother with history of breast cancer. COMPARISON: 03/11/24, 08/08/22, 07/26/21, 06/26/20 TECHNIQUE: Synthesized CC and MLO projections of each breast. Tomosynthesis of each breast in the CC and MLO projections. ADDITIONAL IMAGING: None Computer-aided detection was employed with the [employer] AI 3-D. TISSUE DENSITY: There are scattered areas of fibroglandular density. (BI-RADS category B) FINDINGS: RIGHT BREAST: No suspicious mass. No suspicious calcification. No distortion. No additional suspicious right breast findings LEFT BREAST: No suspicious mass. No suspicious calcification. No distortion. No additional suspicious left breast findings Procedure Note Miguelangel Alcaraz MD - 05/19/2025 EXAM: SCREENING MAMMOGRAPHY, BILATERAL HISTORY: SCREENING. Mother with history of breast cancer. COMPARISON: 03/11/24, 08/08/22, 07/26/21, 06/26/20 TECHNIQUE: Synthesized CC and MLO projections of each breast.Tomosynthesis of each breast in the CC and MLO projections. ADDITIONAL IMAGING: None Computer-aided detection was employed with the [employer] AI 3-D. TISSUE DENSITY: There are scattered areas of fibroglandular density.(BI-RADS category B) FINDINGS: RIGHT BREAST: No suspicious mass. No suspicious calcification. No distortion. Noadditional suspicious right breast findings LEFT BREAST: No suspicious mass. No suspicious calcification. No distortion. Noadditional suspicious left breast findings IMPRESSION: No mammographic evidence of malignancy. No suspicious interval change. A negative mammogram in the presence of a clinically suspicious palpableabnormality does not preclude the possibility of malignancy or alter theindications for biopsy. ASSESSMENT: BI-RADS 1: NEGATIVE RECOMMENDATION(S): 1: Routine screening mammogram BILATERAL in 1 year. [facility] location[facility] [address], [address] -------- FINAL REPORT -------- Dictated By: Miguelangel Alcaraz Dictated Date: 05/19/2025 12:32 ET Assigned Physician: Miguelangel Alcaraz Reviewed and Electronically Signed By: Miguelangel Alcaraz Signed Date: 05/19/2025 12:44 ET Workstation ID: [id number] Transcribed By: Self Edit Transcribed Date: 05/19/2025 12:32 ET us Annita Brewer MD IMG BI PROCEDURES Final Result * Basic metabolic panel (02/03/2025 8:35 AM EDT) Sodium 136 133 - 145 mmol/L LAB CHEMISTRY METHOD 02/03/2025 12:[address] [facility] Potassium 4.7 3.5 - 5.5 mmol/L LAB CHEMISTRY METHOD 02/03/2025 12:[address] [facility] Chloride 103 96 - 110 mmol/L LAB CHEMISTRY METHOD 02/03/2025 12:[address] [facility] CO2 27 21 - 32 mmol/L LAB CHEMISTRY METHOD 02/03/2025 12:[address] [facility] Anion Gap 6 3 - 11 LAB CHEMISTRY METHOD 02/03/2025 12:[address] [facility] Glucose 86 70 - 100 mg/dL LAB CHEMISTRY METHOD 02/03/2025 12:[address] [facility] BUN 19 5 - 25 mg/dL LAB CHEMISTRY METHOD 02/03/2025 12:[address] [facility] Creatinine 0.80 0.50 - 1.10 mg/dL LAB CHEMISTRY METHOD 02/03/2025 12:[address] [facility] eGFR 75 >=60 mL/min/1. 73m2 LAB CHEMISTRY METHOD 02/03/2025 12:[address] [facility] Comment:Calculation based on the Chronic Kidney Disease Epidemiology Collaboration (CKD-EPI) equation refit without adjustment for race. BUN/Creatinine Ratio 23.8 LAB CHEMISTRY METHOD 02/03/2025 12:[address] [facility] Calcium 9.6 8.5 - 10.5 mg/dL LAB CHEMISTRY METHOD 02/03/2025 12:[address] [facility] Blood Venous blood specimen / Unknown Venipuncture / Unknown 02/03/2025 8:35 AM EDT 02/03/2025 11:11 AM EDT us Walter Baker MD LAB BLOOD ORDERABLES Final Result [facility] [address] [place] [address], from Last 3 Months or Most Recently Relevant to Health Maintenance Insurance [place] [address] Care Teams Bath Design Sales Consultant Relationship Specialty Start Date End Date Annita Brewer MD [address] [place] [id number] PCP - General Internal Medicine 05/19/25
--- OUTSIDE RECORDS SUMMARY | 2025-08-06 16:41 | XMS_ITS | Data Portability ---
Author Organization [facility], [facility] Address [address] [place] [address] Care Team Providers Care Brake Operator Name Role Phone LEROY JONES Primary Care Provider LEROY JONES Referring Provider Assessment No assessment recorded. Plan of Treatment Reminders Order Date Submit Date Provider Last Modified By Organization Details Last Modified Time Details Appointments None record ed. Lab None record ed. Referral None record ed. Procedures None record ed. Surgeries None record ed. Imaging None record ed. Medication Orders None record ed. Patient TargetsNo targets recorded. Patient Instructions Encounter Date Encounter Id Patient Instructions Last Modified By Organization Details Last Modified Time 09/27/2021 [id number] Total visit time was 30 minutes in length including [id number] and [id number] time. [email or web address] Not available 09/27/2021 10:59:01 Reason for Referral None Reported. Procedures Surgical History Date Name Laterality Status Provider Name and Address Organization Details Recorded Time 1 PPE completed Jose Castaneda [facility] 09/27/2021 10:32:06 1 CML Shoulder injection (bilateral) completed CYNDIE CAMPBELL MD [address] [place], [phone], [facility] 09/27/2021 10:59:32 Imaging Results None recorded. Procedure Notes None recorded. Medical Equipment None Reported. Allergies No known drug allergies Medications Name Sig Start Date Stop Date Status Note LastModified by Organization Details LastModified Time Crestor 20 mg tablet active Not Available Not Available No t Available Repatha Syringe active Not Available Not Available Not Available aspirin 81 mg capsule active Not Available Not Available N ot Available Vitals Date Recorded Body temperature Pain severity - 0-10 verbal numeric rating [Score] - Reported Body height Body mass index (BMI) Body weight Provider Name and Address Organization Details Last Updated DateTime 09/27/2021 97.3 [degF] 9 165.1 cm 25.8 kg/m2 64129.8 2 g Jose Castaneda [facility] 10:34:03 Social History Question Answer Notes LastModified by [employer] Details LastModified Time Tobacco Smoking Status Never Smoker Jose orona [facility] 09/27/2021 10:34:52 Do You Have An Advance Directive? Yes Information not available 09/27/2021 Sex: Unknown Functional Status Question Answer Note LastModified by [employer] Details LastModified Time Do you use any illicit or recreational drugs? No Information not available 09/27/2021 What is your level of alcohol consumption? None Information not available 09/27/2021 Mental Status None recorded. Family History Nothing Reported. Medical History Condition Response Dyslipidemia Y Gynecological HistoryNo gynecological history recorded. Obstetrics History GPAL:G 0 P 0 0 0 0 Immunizations Vaccine Type Date Status Note Provider Nam e and Address Organization Details Recorded Time COVID-19, mRNA, LNP-S, PF, 100 mcg/0.5mL dose or 50 mcg/0.25mL dose 08/12/2021 completed Jose orona [facility] 09/27/2021 10:33:21 Past Encounters Encounter ID Performer Location Encounter Start Date Encounter Closed Date Diagnosis/Indication Diagnosis SNOMED-CT Code Diagnosis ICD10 Code Diagnosis IMO Codes Diagnosis Note [id number] CYNDIE CAMPBELL MD [facility] [address] [place] [address] 09/27/2021 10:27:44 09/28/2021 10:32:44 Impingement syndrome of shoulder region 679496629 M75.41 M75.42 Plain x-rays are unavailabl e for review. Patient requested and received cortisone injections today. She will advance her activities as tolerated. She will follow-up as needed. Health Concerns Section Related Observation LastModified by Organization Detai ls LastModified Time None Recorded Concern Status LastModified by Organization Details LastModified Time None Recorded Advance Directives Directive Y: Payers Insurance Date Sequence Insurance Name Policy Number Policy Hua Covered Member ID Hua Member ID Guarantor Name 06/23/2023 1 MEDICARE [place]: [facility] Monica Sinclair [id number] Monica Sinclair 06/23/2023 2 [facility] (MEDICARE REPLACEMENT/A DVANTAGE - PPO) [id number] Monica Sinclair [id number] Monica Sinclair 09/14/2021 1 [facility] [id number] Monica Hammvo [id number] Monica Sinclair Notes Date Note Type Note Provider Name and Address Organization Details Recorded Time 09/27/2021 text/html Patient presents for orthopedic evaluation of bilateral shoulder pain. She is usually followed through [facility]. She has a history of bilateral shoulder rotator cuff tendinitis/impinge ment. She has received cortisone injections in the past. Her last set of injections was 1 year ago. She presents now complaining of a 3-month history of increasing activity related bilateral shoulder pain right equal to left. Her pain is lateral about her shoulders. She has pain with reaching and lifting, particularly overhead. She denies neck pain or neurologic symptoms. CYNDIE CAMPBELL MD [address] [place], [address], [facility] [place] [facility] 09/27/2021 11:03:15 OBGyn Episode No OBEpisode recorded.
--- OUTSIDE RECORDS SUMMARY | 2025-08-06 16:41 | XMS_ITS | Encounter Summary ---
Author Organization [facility] [place] [address] Care Team Providers Care Vacuum Extractor Operator Name Role Phone Annita Brewer MD Primary Care Provider [phone] Encounter Details Date Type Department Care Team (Late st Contact Info) Description 01/24/2025 Lab Requisition [facility] Lab [address] [facility] [place] [address] Walter Baker MD [address] [place] [id number] Essential (primary) hypertension; Hyperlipidemia, unspecified; Presence of right artificial shoulder joint Social History Tobacco Use Types Packs/Day Years Used Date Smoking Tobacco: Never Assessed Comments Unknown Sex and Gender Information Value Date Recorded Sex Assigned at Female 03/12/2025 11:27 AM EDT Legal Sex Female 3:13 PM EST Gender Identity Female 03/12/2025 11:27 AM EDT Sexual Orientation Straight 03/12/2025 11 :27 AM EDT documented as of this encounter Plan of Treatment Not on file documented as of this encounter Procedures Procedure Name Priority Date/Time Associated Diagnosis Comments COMPLETE BLOOD COUNT Routine 01/24/2025 5:41 AM EDT Essential (primary) hypertension Hyperlipidemia, unspecified Presence of right artificial shoulder joint COMPREHENSIVE METABOLIC PANEL Routine 01/24/2025 5:41 AM EDT Essential (primary) hypertension Hyperlipidemia, unspecified Presence of right artificial shoulder joint documented in this encounter Results * (ABNORMAL) Comprehensive metabolic panel (01/24/2025 5:41 AM EDT) Sodium 139 133 - 145 mmol/L LAB CHEMISTRY METHOD 01/24/2025 10:54 AM [facility] Potassium 4.2 3.5 - 5.5 mmol/L LAB CHEMISTRY METHOD 01/24/2025 10:54 AM [facility] Chloride 105 96 - 110 mmol/L LAB CHEMISTRY METHOD 01/24/2025 10:54 AM [facility] CO2 26 21 - 32 mmol/L LAB CHEMISTRY METHOD 01/24/2025 10:54 AM [facility] Anion Gap 8 3 - 11 LAB CHEMISTRY METHOD 01/24/2025 10:54 AM [facility] Glucose 89 70 - 100 mg/dL LAB CHEMISTRY METHOD 01/24/2025 10:54 AM [facility] BUN 18 5 - 25 mg/dL LAB CHEMISTRY METHOD 01/24/2025 10:54 AM [facility] Creatinine 0.67 0.50 - 1.10 mg/dL LAB CHEMISTRY METHOD 01/24/2025 10:54 AM [facility] eGFR 88 >=60 mL/min/1. 73m2 LAB CHEMISTRY METHOD 01/24/2025 10:54 AM [facility] Comment:Calculation based on the Chronic Kidney Disease Epidemiology Collaboration (CKD-EPI) equation refit without adjustment for race. BUN/Creatinine Ratio 26.9 LAB CHEMISTRY METHOD 01/24/2025 10:54 AM [facility] Calcium 9.0 8.5 - 10.5 mg/dL LAB CHEMISTRY METHOD 01/24/2025 10:54 AM [facility] AST (SGOT) 9(L) 10 - 42 unit/L LAB CHEMISTRY METHOD 01/24/2025 10:54 AM [facility] ALT (SGPT) 13 10 - 60 unit/L LAB CHEMISTRY METHOD 01/24/2025 10:54 AM EDT [facility] Alkaline Phosphatase 69 42 - 121 unit/L LAB CHEMISTRY METHOD 01/24/2025 10:54 AM EDT [facility] Total Protein 5.3(L) 6.0 - 8.0 g/dL LAB CHEMISTRY METHOD 01/24/2025 10:54 AM [facility] Albumin 2.6(L) 3.2 - 5.0 g/dL LAB CHEMISTRY METHOD 01/24/2025 10:54 AM EDT [facility] Total Bilirubin 0.5 0.0 - 1.4 mg/dL LAB CHEMISTRY METHOD 01/24/2025 10:54 AM [facility] Blood Venous blood specimen / Unknown Venipuncture / Unknown 01/24/2025 5:41 AM EDT 01/24/2025 9:18 AM EDT Walter Baker MD LAB BLOOD ORDERABLES Final Result [facility] [address] [place] [address], * (ABNORMAL) Complete blood count (01/24/2025 5:41 AM EDT) WBC 7.9 4.8 - 10.8 K/mcL LAB HEMETOLOGY METHOD 01/24/2025 10:00 AM [facility] RBC 3.30(L) 3.80 - 4.80 M/mcL LAB HEMETOLOGY METHOD 01/24/2025 10:00 AM [facility] Hemoglobin 10.5(L) 11.5 - 16.0 g/dL LAB HEMETOLOGY METHOD 01/24/2025 10:00 AM [facility] Hematocrit 32.7(L) 35.0 - 47.0 % LAB HEMETOLOGY METHOD 01/24/2025 10:00 AM EDT [facility] MCV 100.0(H) 79.0 - 98.0 FL LAB HEMETOLOGY METHOD 01/24/2025 10:00 AM EDT [facility] MCH 32.1(H) 27.0 - 32.0 pcg LAB HEMETOLOGY METHOD 01/24/2025 10:00 AM T [facility] MCHC 32.1 32.0 - 37.0 g/dL LAB HEMETOLOGY METHOD 01/24/2025 10:00 AM T [facility] RDW 12.7 11.0 - 15.0 % LAB HEMETOLOGY METHOD 01/24/2025 10:00 AM [facility] Platelets 165 130 - 400 K/mcL LAB HEMETOLOGY METHOD 01/24/2025 10:00 AM [facility] MPV 11.0 7.0 - 11.0 FL LAB HEMETOLOGY METHOD 01/24/2025 10:00 AM [facility] NRBC 0.0 <1.0 % LAB HEMETOLOGY METHOD 01/24/2025 10:00 AM [facility] NRBC Absolute 0.00 <0.10 K/mcL LAB HEMETOLOGY METHOD 01/24/2025 10:00 AM [facility] Blood Venous blood specimen / Unknown Venipuncture / Unknown 01/24/2025 5:41 AM EDT 01/24/2025 9:18 AM EDT us Walter Baker MD LAB BLOOD ORDERABLES Final Result [facility] [address] [place] [address], documented in this encounter Visit Diagnoses Diagnosis Essential (primary) hypertension Unspecified essential hypertension Hyperlipidemia, unspecified Presence of right artificial shoulder joint documented in this encounter Care Teams Vacuum Extractor Operator Relationship Specialty Start Date End Date Annita Brewer MD [address] [place] [address] PCP - General Internal Medicine 05/19/25 documented as of this encounter
--- OUTSIDE RECORDS SUMMARY | 2025-08-06 16:41 | XMS_ITS | Encounter Summary ---
Author Organization [facility] and [facility] Address [address] [place] [id number] Care Team Providers Care Chip Drier Name Role Phone Annita Brewer MD Primary Care Provider [phone] Reason for Referral * Imaging (Routine) - Closed Specialty Diagnoses / Procedures Referred By Milagro patrick Referred To Contact Diagnostic Radiology Procedures MRA Brain without IV Contrast [facility] [address] [place] [address] Phone: tel: Referral ID Status Reason Start Date Expiration Date Visits Re quested Visits Authorized [id number] Closed 07/13/2023 07/12/2024 1 1 Encounter Details Date Type Department Care Team (Late st Contact Info) Description 07/13/2023 Scanned Document [facility] [address] [place], [place] [id number] ProviderMalcolm . Social History Tobacco Use Types Packs/Day [...] Procedure Name Priority Date/Time Associated Diagnosis Comments MRA BRAIN WO IV CONTRAST Routine 07/12/2023 documented in this encounter Results * MRA Brain without IV Contrast (07/12/2023) Anatomical Region Laterality Modality Head, Vascular Magnetic Resonan ce us Historical Provider IMG MRI ORDERABLES Final Res ult documented in this encounter Visit Diagnoses Not on filedocumented in this encounter Care Teams Chip Drier Relationship Specialty Start Date End Date Annita Brewer MD PCP - General Internal Medicine 01/03/19 documented as of this encounter
--- OUTSIDE RECORDS SUMMARY | 2025-08-06 16:41 | XMS_ITS | Encounter Summary ---
Author Organization [facility] [place] [address] Care Team Providers Care Molder Sweep Name Role Phone Annita Brewer MD Primary Care Provider [phone] Encounter Details Date Type Department Care Team (Late st Contact Info) Description 01/31/2025 Lab Requisition [facility] - Main Lab [address] [facility] [place] [address] Walter Baker MD [address] [place] [id number] Essential (primary) hypertension; Hyperlipidemia, unspecified Social History Tobacco Use Types Packs/Day Years [...] Associated Diagnosis Comments COMPLETE BLOOD COUNT Routine 02/03/2025 8:35 AM EDT Essential (primary) hypertension Hyperlipidemia, unspecified BASIC METABOLIC PANEL Routine 02/03/2025 8:35 AM EDT Essential (primary) hypertension Hyperlipidemia, unspecified documented in this encounter Results * Basic metabolic panel (02/03/2025 8:35 AM EDT) Sodium 136 133 - 145 mmol/L LAB CHEMISTRY METHOD 02/03/2025 12:53 PM [facility] Potassium 4.7 3.5 - 5.5 mmol/L LAB CHEMISTRY METHOD 02/03/2025 12:53 PM [facility] Chloride 103 96 - 110 mmol/L LAB CHEMISTRY METHOD 02/03/2025 12:53 PM [facility] CO2 27 21 - 32 mmol/L LAB CHEMISTRY METHOD 02/03/2025 12:53 PM [facility] Anion Gap 6 3 - 11 LAB CHEMISTRY METHOD 02/03/2025 12:53 PM [facility] Glucose 86 70 - 100 mg/dL LAB CHEMISTRY METHOD 02/03/2025 12:53 PM [facility] BUN 19 5 - 25 mg/dL LAB CHEMISTRY METHOD 02/03/2025 12:53 PM [facility] Creatinine 0.80 0.50 - 1.10 mg/dL LAB CHEMISTRY METHOD 02/03/2025 12:53 PM [facility] eGFR 75 >=60 mL/min/1. 73m2 LAB CHEMISTRY METHOD 02/03/2025 12:53 PM [facility] Comment:Calculation based on the Chronic Kidney Disease Epidemiology Collaboration (CKD-EPI) equation refit without adjustment for race. BUN/Creatinine Ratio 23.8 LAB CHEMISTRY METHOD 02/03/2025 12:53 PM [facility] Calcium 9.6 8.5 - 10.5 mg/dL LAB CHEMISTRY METHOD 02/03/2025 12:53 PM [facility] Blood Venous blood specimen / Unknown Venipuncture / Unknown 02/03/2025 8:35 AM EDT 02/03/2025 11:11 AM EDT us Walter Baker MD LAB BLOOD ORDERABLES Final Result [facility] [address] [place] [address], * (ABNORMAL) Complete blood count (02/03/2025 8:35 AM EDT) [facility] Signature WBC 6.3 4.8 - 10.8 K/mcL LAB HEMETOLOGY METHOD 02/03/2025 1:34 PM EDT [facility] RBC 3.50(L) 3.80 - 4.80 M/mcL LAB HEMETOLOGY METHOD 02/03/2025 1:34 PM EDT [facility] Hemoglobin 11.5 11.5 - 16.0 g/dL LAB HEMETOLOGY METHOD 02/03/2025 1:34 PM EDT [facility] Hematocrit 35.4 35.0 - 47.0 % LAB HEMETOLOGY METHOD 02/03/2025 1:34 PM EDT [facility] MCV 100.9(H) 79.0 - 98.0 FL LAB HEMETOLOGY METHOD 02/03/2025 1:34 PM EDT [facility] MCH 32.8(H) 27.0 - 32.0 pcg LAB HEM[facility]OLOGY [facility] MCHC 32.5 32.0 - 37.0 g/dL LAB HEMETOLOGY METHOD 02/03/2025 1:34 PM EDT [facility] RDW 12.7 11.0 - 15.0 % LAB HEMETOLOGY METHOD 02/03/2025 1:34 PM EDT [facility] Platelets 390 130 - 400 K/mcL LAB HEMETOLOGY METHOD 02/03/2025 1:34 PM EDT [facility] MPV 9.9 7.0 - 11.0 FL LAB HEMETOLOGY METHOD 02/03/2025 1:34 PM EDT [facility] NRBC 0.0 <1.0 % LAB HEMETOLOGY METHOD 02/03/2025 1:34 PM EDT [facility] NRBC Absolute 0.00 <0.10 K/mcL LAB HEMETOLOGY METHOD 02/03/2025 1:34 PM EDT [facility] Blood Venous blood specimen / Unknown Venipuncture / Unknown 02/03/2025 8:35 AM EDT 02/03/2025 11:11 AM EDT us Walter Baker MD LAB BLOOD ORDERABLES Final Result [facility] [address] [place] [address], documented in this encounter Visit Diagnoses Diagnosis Essential (primary) hypertension Unspecified essential hypertension Hyperlipidemia, unspecified documented in this encounter Care Teams Molder Sweep Relationship Specialty Start Date End Date Annita Brewer MD [address] [place] [phone] PCP - General Internal Medicine 05/19/25 documented as of this encounter
--- OUTSIDE RECORDS SUMMARY | 2025-08-06 16:41 | XMS_ITS | Encounter Summary ---
Author Organization [facility] and [facility] Address [address] [place] [phone] Care Team Providers Care Slide Attendant Name Role Phone Annita Brewer MD Primary Care Provider [phone] Encounter Details Date Type Department Care Team (Late st Contact Info) Description 03/07/2019 Scanned Document [facility] [address] [facility] [address] [place] [address] Provider, Historical . Social History Tobacco Use Types Packs/Day Years Used Date Smoking Tobacco: Never Assessed AUDIT-C Answer Date Recorded Frequency of Alcohol Consumption Never 03/11/2019 Average Number of Drinks Not on file 019 Frequency of Binge Drinking Not on file 02/21 Comments Unknown Sex and Gender Information Value Date Recorded Sex Assigned at Not on file Legal Sex Female 9:05 AM EDT Gender Identity Not on file Sexual Orientation Not on file documented as of this encounter Plan of Treatment Not on file documented as of this encounter Procedures Procedure Name Priority Date/Time Associated Diagnosis Comments MRI RESULT SCAN Routine 03/06/2019 documented in this encounter Results * MRI Result Scan (03/06/2019) us Historical Provider IMG SCAN REPORTS Final Resul t documented in this encounter Visit Diagnoses Not on filedocumented in this encounter Care Teams Slide Attendant Relationship Specialty Start Date End Date Annita Brewer MD PCP - General Internal Medicine 01/03/19 documented as of this encounter
--- OUTSIDE RECORDS SUMMARY | 2025-08-06 16:42 | XMS_ITS | Encounter Summary ---
Author Organization [facility] [place] [address] Care Team Providers Care Quartz Miner Blasting Name Role Phone Annita Brewer MD Primary Care Provider [phone] Encounter Details Date Type Department Care Team (Late st Contact Info) Description 01/25/2025 Lab Requisition [facility] - Main Lab [address] [facility] [place] [address] Walter Baker MD [address] [place] [id number] Essential (primary) hypertension; Hyperlipidemia, unspecified Social History [...] Associated Diagnosis Comments COMPLETE BLOOD COUNT Routine 01/27/2025 7:54 AM EDT Essential (primary) hypertension Hyperlipidemia, unspecified BASIC METABOLIC PANEL Routine 01/27/2025 7:54 AM EDT Essential (primary) hypertension Hyperlipidemia, unspecified documented in this encounter Results * Basic metabolic panel (01/27/2025 7:54 AM EDT) Sodium 140 133 - 145 mmol/L LAB CHEMISTRY METHOD 01/27/2025 10:37 AM [facility] Potassium 4.3 3.5 - 5.5 mmol/L LAB CHEMISTRY METHOD 01/27/2025 10:37 AM [facility] Chloride 108 96 - 110 mmol/L LAB CHEMISTRY METHOD 01/27/2025 10:37 AM [facility] CO2 26 21 - 32 mmol/L LAB CHEMISTRY METHOD 01/27/2025 10:37 AM [facility] Anion Gap 6 3 - 11 LAB CHEMISTRY METHOD 01/27/2025 10:37 AM [facility] Glucose 88 70 - 100 mg/dL LAB CHEMISTRY METHOD 01/27/2025 10:37 AM [facility] BUN 22 5 - 25 mg/dL LAB CHEMISTRY METHOD 01/27/2025 10:37 AM [facility] Creatinine 0.67 0.50 - 1.10 mg/dL LAB CHEMISTRY METHOD 01/27/2025 10:37 AM [facility] eGFR 88 >=60 mL/min/1. 73m2 LAB CHEMISTRY METHOD 01/27/2025 10:37 AM [facility] Comment:Calculation based on the Chronic Kidney Disease Epidemiology Collaboration (CKD-EPI) equation refit without adjustment for race. BUN/Creatinine Ratio 32.8 LAB CHEMISTRY METHOD 01/27/2025 10:37 AM [facility] Calcium 9.4 8.5 - 10.5 mg/dL LAB CHEMISTRY METHOD 01/27/2025 10:37 AM [facility] Blood Venous blood specimen / Unknown Venipuncture / Unknown 01/27/2025 7:54 AM EDT 01/27/2025 9:51 AM EDT us Walter Baker MD LAB BLOOD ORDERABLES Final Result [facility] [address] [place] [address], * (ABNORMAL) Complete blood count (01/27/2025 7:54 AM EDT) WBC 6.9 4.8 - 10.8 K/mcL LAB HEMETOLOGY METHOD 01/27/2025 10:[address] [facility] RBC 3.30(L) 3.80 - 4.80 M/mcL LAB HEMETOLOGY METHOD 01/27/2025 10:[address] [facility] Hemoglobin 10.6(L) 11.5 - 16.0 g/dL LAB HEMETOLOGY METHOD [facility] Hematocrit 32.7(L) 35.0 - 47.0 % LAB HEMETOLOGY METHOD 01/27/2025 10:[address] [facility] MCV 98.8(H) 79.0 - 98.0 FL LAB HEMETOLOGY METHOD 01/27/2025 10:[address] [facility] MCH 32.0 27.0 - 32.0 pcg LAB HEMETOLOGY METHOD [facility] MCHC 32.4 32.0 - 37.0 g/dL LAB HEMETOLOGY METHOD 01/27/2025 10:[address] [facility] RDW 12.4 11.0 - 15.0 % LAB HEMETOLOGY METHOD 01/27/2025 10:[address] [facility] Platelets 242 130 - 400 K/mcL LAB HEMETOLOGY METHOD [facility]2025 [facility] MPV 10.2 7.0 - 11.0 FL LAB HEMETOLOGY METHOD 01/27/2025 10:[address] [facility] NRBC 0.0 <1.0 % LAB HEMETOLOGY METHOD 01/27/2025 10:[address] [facility] NRBC Absolute 0.00 <0.10 K/mcL LAB HEMETOLOGY METHOD 01/27/2025 10:[address] [facility] Blood Venous blood specimen / Unknown Venipuncture / Unknown 01/27/2025 7:54 AM EDT 01/27/2025 9:51 AM EDT us Walter Baker MD LAB BLOOD ORDERABLES Final Result [facility] [address] [place] [address], documented in this encounter Visit Diagnoses Diagnosis Essential (primary) hypertension Unspecified essential hypertension Hyperlipidemia, unspecified documented in this encounter Care Teams Quartz Miner Blasting Relationship Specialty Start Date End Date Annita Brewer MD [address] [place] [phone] PCP - General Internal Medicine 05/19/25 documented as of this encounter
--- OUTSIDE RECORDS SUMMARY | 2025-08-06 16:42 | XMS_ITS | Encounter Summary ---
Author Organization [facility] [place] [address] Care Team Providers Care Microstrategy Architect Name Role Phone Annita Brewer MD Primary Care Provider [phone] Encounter Details Date Type Department Care Team (Late st Contact Info) Description 02/08/2025 Lab Requisition [facility] - Main Lab [address] [facility] [place] [address] Walter Baker MD [address] [place] [phone] Essential (primary) hypertension; Hyperlipidemia, unspecified Social History [...] documented as of this encounter Visit Diagnoses Diagnosis Essential (primary) hypertension Unspecified essential hypertension Hyperlipidemia, unspecified documented in this encounter Care Teams Microstrategy Architect Relationship Specialty Start Date End Date Annita Brewer MD [address] [place] [id number] PCP - General Internal Medicine 05/19/25 documented as of this encounter
--- OUTSIDE RECORDS SUMMARY | 2025-08-06 16:43 | XMS_ITS | Data Portability ---
Author Organization [facility] Dino Colin [facility], [facility] [place] Address [address] [place] [address] Care Team Providers Care Traffic Survey Technician Name Role Phone LEROY JONES Primary Care Provider Assessment Encounter Date Assessment Date Assessment LastModified by Organization Details LastModified Time 05/06/2025 05/06/2025 Assessment: Good steady progress. Weak shld flexion, challenged with attempted GTB resistance. Plan: Continue PT @ 2x/wk to decrease pain, increase ROM, optimize mechanics, and improve participation in functional activities. Not available 05/06/2025 16:12:00 05/08/2025 05/08/2025 Assessment: Good steady progress. Improved IR able to get arm behind back. Plan: Continue PT @ 2x/wk to decrease pain, increase ROM, optimize mechanics, and improve participation in functional activities. Not available 05/09/2025 04:30:30 05/12/2025 05/12/2025 Assessment: Good steady progress. Improved strength and ROM Plan: Continue PT @ 2x/wk to decrease pain, increase ROM, optimize mechanics, and improve participation in functional activities. Not available 05/13/2025 04:00:44 05/15/2025 05/15/2025 Assessment: Good steady progress. Improved strength and ROM. Plan: Finish scheduled apts and DC to [facility] Not available 05/15/2025 15:17:41 Plan of Treatment Reminders Order Date Submit Date Provider Last Modified By Organization Details Last Modified Time Details Appointments RECHECK 15 2024 03:00P M Catherine Fisher MD Not available Not available Not available Lab None recorded . Referral None recorded . Procedures None recorded . Surgeries None recorded . Imaging None recorded . Medication Orders None recorded . Patient TargetsNo targets recorded. Patient InstructionsNo instructions recorded. Reason for Referral None Reported. Results Created Date Observation Date Name Description Value Unit Range Abnormal Flag Note LastModifiedBy Organization Detail LastModifiedTime 05/02/20 25 05/02/2025 XR, shoul yuliet, 2 or more view http:/ [email or web address] ?Encry pted=s hAaTro YD8dLq bEUv6g %2BXZw aYqtaq 0bqfl% 2Fg9IQ a4ajBk vP9nXo QUaueC m3YtLR FvZlgJ JJ8mAn HZtai3 8x2215 AC0Kla XuEVKa jKiQtr MwF INTERFACE [facility] [address], [place], [address], 05/02/2025 14:42:32 05/02/20 25 05/02/2025 XR, shoul yuliet, 2 or more view http:/ [email or web address] ?Encry pted=s hAaTro YD8dLq bEUv6g %2BXZw aYqtaq 0bqfl% 2Fg9IQ a4ajBk vP9nXo QUaueC m3YtLR FvZlgJ JJ8mAn HZtai3 8s5680 AC0Kla XuSAURABHKa jKiQtr MwF INTERFACE [facility] [address], [place], [address], 05/02/2025 14:42:33 Result Notes None recorded. Problems Name Problem SNOMED Code Status Onset Date Resolution Date Notes Provider Name and Address Organization Details Recorded Time Pain of left hip joint 6589003173366 00 Active 2023 RASHEED orona [place] - [facility] 13:43:16 Greater trochanteri c pain syndrome 7098670 Active 2024 José dunacn PA-C [address], [place], [address] [place] [address] - [facility] 14:03:28 Problem Notes None recorded. Procedures Surgical History Date Name Laterality Status Provider Name and Address Organization Details Recorded Time Hip Kenalog 1cc Injection, L/R completed José Trevino PA-C [address], [place], [address], [facility] 07/28/2025 14:03:14 5 32965 Therapeutic Exercise (1:1) cancelled Mauro Patton, PT [address], [place], [address], [facility] 05/20/2025 10:07:01 5 84518: Manual therapy cancelled Mauro Patton, PT [address], [place], [address], [facility] 05/20/2025 10:07:01 5 83225 Therapeutic Exercise (1:1) completed Marek Salinas, ETCHER ENAMELING [address], [place], [address], [facility] 05/15/2025 15:15:15 5 10392: Manual therapy completed Marek Salinas, ETCHER ENAMELING [address], [place], [address], [facility] 05/15/2025 15:15:15 5 39881 Therapeutic Exercise (1:1) completed Marek Salinas, ETCHER ENAMELING [address], [place], [address], [facility] 05/12/2025 16:35:47 5 02219: Manual therapy completed Marek Salinas, ETCHER ENAMELING [address], [place], [address], [facility] 05/12/2025 16:35:47 5 74926 Therapeutic Exercise (1:1) completed Mauro Patton, PT [address], [place], [address], [facility] 05/07/2025 16:28:34 5 80602: Manual therapy completed Mauro Patton, PT [address], [place], [address], [facility] 05/07/2025 16:28:34 5 34943 Therapeutic Exercise (1:1) completed Marek Scafuri, ETCHER ENAMELING [address], [place], [address], [facility] 05/06/2025 16:10:17 5 53752: Hot or Cold Pack completed Marek Yannickfuri, ETCHER ENAMELING [address], [place], [address], [facility] 05/06/2025 16:10:17 5 11497: Manual therapy completed Marek Lanierfuri, ETCHER ENAMELING [address], [place], [address], [facility] 05/06/2025 16:10:17 5 49482 Therapeutic Exercise (1:1) completed Marek Lanierfuri, ETCHER ENAMELING [address], [place], [address], [facility] 04/30/2025 18:36:24 5 36954: Hot or Cold Pack completed Marek Scafuri, ETCHER ENAMELING [address], [place], [address], [facility] 04/30/2025 18:26:24 5 66003: Manual therapy completed Marek Scafuri, ETCHER ENAMELING [address], [place], [address], [facility] 04/30/2025 18:26:24 5 29175 Therapeutic Exercise (1:1) completed Mauro Patton, PT [address], [place], [address], [facility] 04/27/2025 17:31:32 5 13906: Hot or Cold Pack completed Mauro Florek, PT [address], [place], [address], [facility] 04/27/2025 17:31:32 5 11476: Manual therapy completed Mauro Hienek, PT [address], [place], [address], [facility] 04/27/2025 17:31:32 5 32753 Therapeutic Exercise (1:1) completed Marek Scafuri, ETCHER ENAMELING [address], [place], [address], [facility] 04/28/2025 05:51:52 5 09388: Hot or Cold Pack completed Marek Scafuri, ETCHER ENAMELING [address], [place], [address], [facility] 04/28/2025 05:51:52 5 46975: Manual therapy completed Marek Scafuri, ETCHER ENAMELING [address], [place], [address], [facility] 04/28/2025 05:51:52 5 91850 Therapeutic Exercise (1:1) completed Marek Scafuri, ETCHER ENAMELING [address], [place], [address], [facility] 04/22/2025 18:52:47 5 68018: Hot or Cold Pack completed Marek Scafuri, ETCHER ENAMELING [address], [place], [address], [facility] 04/22/2025 18:50:15 5 21178: Manual therapy completed Marek Scafuri, ETCHER ENAMELING [address], [place], [address], [facility] 04/22/2025 18:50:15 5 30798 Therapeutic Exercise (1:1) completed Mauro Florek, PT [address], [place], [address], [facility] 04/15/2025 18:57:39 5 71871: Hot or Cold Pack completed Mauronicki Patton, PT [address], [place], [address], [facility] 04/15/2025 18:57:39 5 40868: Manual therapy completed Mauro Patton, PT [address], [place], [address], [facility] 04/15/2025 18:57:39 5 28010 Therapeutic Exercise (1:1) completed Mauro Patton, PT [address], [place], [address], [facility] 04/10/2025 15:38:12 5 76223: Hot or Cold Pack completed Mauro Patton, PT [address], [place], [address], [facility] 04/10/2025 15:38:12 5 73395: Manual therapy completed Mauro Patton, PT [address], [place], [address], [facility] 04/10/2025 15:38:12 5 05066 Therapeutic Exercise (1:1) completed Mauro Patton, PT [address], [place], [address], [facility] 04/09/2025 07:04:37 5 66726: Hot or Cold Pack completed Mauro Patton, PT [address], [place], [address], [facility] 04/09/2025 07:04:37 5 35701: Manual therapy completed Mauro Patton, PT [address], [place], [address], [facility] 04/09/2025 07:04:37 5 46194 Therapeutic Exercise (1:1) completed Marek Scafuri, ETCHER ENAMELING [address], [place], [address], [facility] 04/07/2025 06:45:28 5 75443: Hot or Cold Pack completed Marek Scafuri, ETCHER ENAMELING [address], [place], [address], [facility] 04/07/2025 06:45:28 5 39842: Manual therapy completed Marek Scafuri, ETCHER ENAMELING [address], [place], [address], [facility] 04/07/2025 06:45:28 5 55582 Therapeutic Exercise (1:1) completed Marek Scafuri, ETCHER ENAMELING [address], [place], [address], [facility] 04/01/2025 16:36:31 5 38986: Hot or Cold Pack completed Marek Scafuri, ETCHER ENAMELING [address], [place], [address], [facility] 04/01/2025 16:36:31 5 01288: Manual therapy completed Marek Scafuri, ETCHER ENAMELING [address], [place], [address], [facility] 04/01/2025 16:36:31 5 25198 Therapeutic Exercise (1:1) completed Marek Scafuri, ETCHER ENAMELING [address], [place], [address], [facility] 03/28/2025 16:34:15 5 89979: Hot or Cold Pack completed Marek Scafuri, ETCHER ENAMELING [address], [place], [address], [facility] 03/28/2025 16:34:15 5 92855: Manual therapy completed Marek Scafuri, ETCHER ENAMELING [address], [place], [address], [facility] 03/28/2025 16:34:15 5 17058 Therapeutic Exercise (1:1) completed Marekalfred Lanierfuri, ETCHER ENAMELING [address], [place], [address], [facility] 03/25/2025 15:06:50 5 60809: Hot or Cold Pack completed Marek Yannickfuri, ETCHER ENAMELING [address], [place], [address], [facility] 03/25/2025 15:06:50 5 23245: Manual therapy completed Marek Lanierfuri, ETCHER ENAMELING [address], [place], [address], [facility] 03/25/2025 15:06:50 5 01581 Therapeutic Exercise (1:1) completed Mauro Patton, PT [address], [place], [address], [facility] 03/19/2025 06:45:27 5 01520: Hot or Cold Pack completed Mauronicki Patton, PT [address], [place], [address], [facility] 03/19/2025 06:45:27 5 17636: Manual therapy completed Mauro Patton, PT [address], [place], [address], [facility] 03/19/2025 06:45:27 5 09948 Therapeutic Exercise (1:1) completed Mauronicki Patton, PT [address], [place], [address], [facility] 03/14/2025 05:11:09 5 44962: Hot or Cold Pack completed Mauronicki Patton, PT [address], [place], [address], [facility] 03/14/2025 05:11:09 5 82902: Manual therapy completed Mauro Patton, PT [address], [place], [address], [facility] 03/14/2025 05:11:09 5 52557 Therapeutic Exercise (1:1) completed Mauro Patton, PT [address], [place], [address], [facility] 03/12/2025 07:10:10 5 98908: Hot or Cold Pack completed Mauro Patton, PT [address], [place], [address], [facility] 03/12/2025 07:10:10 5 07761: Manual therapy completed Mauro Patton, PT [address], [place], [address], [facility] 03/12/2025 07:10:10 5 12320 Therapeutic Exercise (1:1) completed Mauro Patton, PT [address], [place], [address], [facility] 03/09/2025 08:41:45 5 10148: Hot or Cold Pack completed Mauro Patton, PT [address], [place], [address], [facility] 03/09/2025 08:43:21 5 64785: Manual therapy completed Mauro Patton, PT [address], [place], [address], [facility] 03/09/2025 08:46:14 5 Sports Shoulder 4&1 completed Jourdan Duncan PA-C [address], [place], [address], [facility] 03/06/2025 13:39:57 5 46591 Therapeutic Exercise (1:1) completed Mauro Patton, PT [address], [place], [address], [facility] 03/05/2025 13:25:44 5 74916: Low complexity PT Eval completed Mauro Patton, PT [address], [place], [address], [facility] 03/05/2025 13:32:47 5 total shoulder replacement completed UMESH GRANADOS [facility] 01/29/2025 08:21:36 5 Shoulder Surgery completed Beth Gomez [facility] 07/28/2025 13:47:53 5 Sports Knee 4&1 completed José Trevino PA-C [address], [place], [address], [facility] 11/05/2024 14:28:49 4 Sports Shoulder completed José Trevino PA-C [address], [place], [address], [facility] 10/22/2024 13:54:26 4 Hip Kenalog 1cc Injection, L/R completed José Trevino PA-C [address], [place], [address], [facility] 05/09/2024 13:26:45 4 Hip Kenalog 1cc Injection, L/R completed José Trevino PA-C [address], [place], [address], [facility] 01/11/2024 08:20:41 Imaging Results None recorded. Procedure Notes None recorded. Medical Equipment None Reported. Allergies Allergen ID Allergen Name Allergen Category Reaction Reaction Severity Criticality Documentation Date Start Date Code Code System Note Provider Name and Address Organization Details Recorded Time 23542 Demsaint alphonsus [facility] medicatio n Not available Not available Not available 12/25/20232001 56610 1 RxNorm UMESH orona [place] - [facility] 5 07:36:55 Medications Name Sig Start Date Stop Date Status Note LastModified by Organization Details LastModified Time amoxicillin 500 mg capsule TAKE 4 TABS 1 HOUR BEFORE TO DENTAL APPOINTME NT active Not Available Not Available No t Available meloxicam 15 mg tablet TAKE 1 TABLET BY MOUTH EVERY DAY AFTER MEALS 11/28 completed Not Available Not Available Not Available prednisone 20 mg tablet TAKE 2 TABLETS BY MOUTH EVERY DAY FOR 3 DAYS 10/22 completed Not Available Not Available Not Available valacyclovi r 500 mg tablet TAKE 1 TABLET BY MOUTH TWICE A DAY FOR 3 DAYS 11/28 completed Not Available Not Available Not Available tramadol 50 mg tablet TAKE 1 TABLET BY MOUTH EVERY 6 HOURS active Not Available Not Available No t Available betamethaso ne, augmented 0.05 % lotion APPLY TO AFFECTED AREAS OF THE EARS ONCE TO TWICE DAILY FOR 2 WEEKS ON, 1 WEEK OFF. REPEAT NEEDED active Not Available Not Available No t Available ofloxacin 0.3 % ear drops INSTILL 10 DROPS INTO AFFECTED EAR EVERY DAY FOR 7 DAYS active Not Available Not Available No t Available ramipril 2.5 mg capsule 11/28 completed Not Available Not Available Not Available gabapentin 300 mg capsule TAKE 2 CAPSULE ORALLY ONCE A DAY AT BEDTIME 30 DAYS 11/28 completed Not Available Not Available Not Available estradiol 0.01% (0.1 mg/gram) vaginal cream PLEASE SEE ATTACHED FOR DETAILED DIRECTION S active Not Available Not Available No t Available methylpredn isolone 4 mg tablets in a dose pack TAKE 6 TABLETS ON DAY 1 DIRECTED ON PACKAGE AND DECREASE BY 1 TAB EACH DAY FOR A TOTAL OF 6 DAYS 10/22 completed Not Available Not Available Not Available albuterol sulfate HFA 90 mcg/actuati on aerosol inhaler INHALE 2 PUFFS BY MOUTH 4 TIMES A DAY NEEDED FOR SHORTNESS OF BREATH OR WHEEZING FOR 14 DAYS 01/10 completed Not Available Not Available Not Available ondansetron 4 mg disintegrat ing tablet TAKE 1 TABLET BY MOUTH EVERY 8 HOURS NEEDED FOR NAUSEA 11/28 completed Not Available Not Available Not Available fluticasone propionate 50 mcg/actuati on nasal spray,suspe nsion SPRAY 1 SPRAY INTO EACH NOSTRIL EVERY DAY FOR 30 DAYS 01/10 completed Not Available Not Available Not Available ramipril 5 mg capsule 11/28 completed Not Available Not Available Not Available naproxen 500 mg tablet TAKE 1 TABLET AFTER BREAKFAST , AND 1 TABLET AFTER DINNER NEEDED FOR PAIN 01/10 completed Not Available Not Available Not Available diazepam 5 mg tablet TAKE 1 TABLET BEFORE BEDTIME ON THE NIGHT BEFORE SURGERY active Not Available Not Available No t Available ramipril 10 mg capsule TAKE 1 CAPSULE BY MOUTH EVERY DAY active Not Available Not Available No t Available moxifloxaci n 0.5 % eye drops PLACE 1 DROP INTO SURGICAL EYE(S) FOUR TIMES DAILY START 1 DAY PRIOR TO SURGERY AND CONTINUE FOR 1 WEEK 11/28 completed Not Available Not Available Not Available rosuvastati n 20 mg tablet TAKE 1 TABLET DAILY active Not Available Not Available No t Available nitrofurant oin monohydrate /macrocryst als 100 mg capsule TAKE 1 CAPSULE BY MOUTH TWICE A DAY FOR 7 DAYS 11/28 completed Not Available Not Available Not Available BD Ultra-Fine Mini Pen Needle 31 gauge x 3/16 ONCE A DAY USE EVERYDAY X 90 DAYS 01/10 completed Not Available Not Available Not Available bromfenac 0.09 % eye drops PLACE 1 DROP INTO SURGICAL EYE(S) ONCE DAILY AND CONTINUE FOR 4 WEEKS AFTER SURGERY 11/28 completed Not Available Not Available Not Available Vitamin C active Not Available Not Fadumo ilable Not Available AH-Chew D active Not Available Not Fadumo ilable Not Available Valtrex Valtrex 1GM Tablet 01/10 completed Statu s: 'Curr ent'; Not Available Not Available Not Available diflupredna te 0.05 % eye drops PLACE 1 DROP INTO SURGICAL EYE(S) TWICE DAILY START 1 DAY PRIOR TO SURGERY AND CONTINUE FOR 4 WEEKS 11/28 completed Not Available Not Available Not Available bimatoprost 0.03 % drops with applicator, eyelash base USE 1 APPLICATI ON ALONG UPPER EYELID MARGIN AT BASE OF EYELASHES EXTERNALL Y ONCE A DAY 11/28 completed Not Available Not Available Not Available Saxenda 3 mg/0.5 mL (18 mg/3 mL) subcutaneou s pen injector INJECT 1.8MG SUBCUTANE OUSLY ONCE A DAY 01/06 completed Not Available Not Available Not Available Repatha SureClick 140 mg/mL subcutaneou s pen injector active Not Available Not Available Not Available Tresiba FlexTouch U-100 insulin 100 unit/mL (3 mL) subcutaneou s pen Inject by subcutane ous route. active Not Available Not Available No t Available bromfenac 0.075 % eye drops PLACE 1 DROP INTO SURGICAL EYE(S) DAILY FOR 28 days 11/28 completed Not Available Not Available Not Available Linzess 72 mcg capsule 01/06 completed Not Available Not Available Not Available Vitals Date Recorded Body height Body mass index (BMI) Body weight Provider Name and Address Organization Details Last Updated DateTime 07/28/2025 165.1 cm 26.6 kg/m2 85188.78 g Beth Gomez [facility] 07/28/2025 13:51:12 Social History Question Answer Notes LastModified by PetroDE Details LastModified Time Tobacco Smoking Status [facility] 11/29/2024 07:36:58 What Is Your Relationship Status? Information not available 11/29/2024 How Many Years Have You Smoked Tobacco? 0 Information not available 11/29/2024 Sex: Unknown Functional Status Question Answer Note LastModified by PetroDE Details LastModified Time How many times per week do you consume alcohol? Less than 1 time per week Information not available 11/29/2024 Do you use any illicit or recreational drugs? No Information not available 11/29/2024 Do you or have you ever used any other forms of tobacco or nicotine? No Information not available 11/29/2024 Do you or have you ever used e-cigarettes or vape? Never used electronic cigarettes Information not available 11/29/2024 Mental Status None recorded. Family History Nothing Reported. Medical History Condition Response Allergies/Hayfever N Coronary Artery Disease N Anxiety/Depression N Breathing or lung disorders N Emphysema N Nerve Disorders N Thyroid Problems N COPD N Pacemaker N Anemia N Kidney/Bladder Problems N Vascular Disease N Heart Trouble N Heart Attack (NE) N Gastrointestinal Disease N Cholesterol Y Diabetes N Autoimmune disease N Bleeding Disorder N Inflammatory Joint disease N Orthotics N Arthritis Y Seizures/Epilepsy N Blood Clot N AIDS/HIV N Congestive Heart Failure (CHF) N Acid Reflux (GERD) N Cancer N Stroke Y Asthma N Circulation Problems N Peripheral Vascular Disease N Sleep Apnea N Hepatitis N Heart Disease N Rheumatoid Arthritis N Arrhythmia N Pulmonary Embolism N Headaches N Fibromyalgia N Hypertension Y Osteoporosis N Gynecological HistoryNo gynecological history recorded. Obstetrics History GPAL:G 0 P 0 0 0 0 Past Encounters Encounter ID Performer Location Encounter Start Date Encounter Closed Date Diagnosis/Indication Diagnosis SNOMED-CT Code Diagnosis ICD10 Code Diagnosis IMO Codes Diagnosis Note [id number] [facility] [address] [place] [address] 01/11/2024 08:07:44 01/30/2024 11:02:48 Greater trochanteric pain syndrome 0901001 M70.62 [id number] [facility] [address] [place] [address] 05/09/2024 13:03:06 06/06/2024 07:39:55 Trochanteric bursitis of left hip 6272697711 29566 M70.62 [id number] [facility] [address] [place] [address] 06/13/2024 09:03:45 07/11/2024 09:44:59 Pain of left shoulder joint 1288772805 1121352 M25.512 Partial th ickness rotator cuff tear 797368662 M75.101 Derangemen t of left shoulder joint 1586953262 3783729 M24.659 [id number] José Trevino PA-C [facility] [address] [place] [address] 10/22/2024 13:17:55 11/06/2024 13:39:01 Rotator cuff arthropathy of left shoulder 0650105614 6284824 M12.812 [id number] [facility] [address] [place] [address] 11/05/2024 13:52:52 11/15/2024 14:54:26 Pain of left hip joint 1618373293 33997 M25.552 Greater tr ochanteric pain syndrome 1975431 M70.62 [id number] MD KALIA Cedillo [address] [place] [address] 11/29/2024 07:33:00 12/17/2024 12:34:39 Nontraumatic complete rupture of rotator cuff of left shoulder 8122739123 112059 M75.122 [id number] MD KALIA Cedillo [facility] [address] [place] [address] 01/06/2025 11:31:42 01/17/2025 15:55:01 Osteoarthritis of joint of left shoulder region [id number] 20105 M19.940 [id number] MD [facility] [address] [place] [address] 02/03/2025 14:52:44 02/13/2025 15:09:00 History of reverse prosthetic total arthroplasty of left shoulder [id number] Z96.612 [id number] Mauro Patton, PT [facility] [address] [place] [address] 03/05/2025 09:54:12 03/05/2025 12:44:16 Aftercare [id number] Z47.1 Z96.074 [id number] Jourdan Duncan PA-C [facility] [address] [place] [address] 03/06/2025 12:48:10 03/14/2025 11:39:22 Postoperative visit [id number] Z48.89 [id number] Osteoarthr itis of joint of right shoulder region [id number] 53713 M19.544 [id number] Mauro Patton, PT [facility] [address] [place] [address] 03/07/2025 09:40:57 03/07/2025 10:55:22 Aftercare [id number] Z47.1 Z96.330 [id number] Mauro Patton, PT [facility] [address] [place] [address] 03/12/2025 14:12:34 03/12/2025 15:02:19 Aftercare [id number] Z47.1 Z96.067 [id number] Mauro Patton, PT [facility] [address] [place] [address] 03/14/2025 13:01:08 03/14/2025 14:02:18 Aftercare [id number] Z47.1 Z96.294 [id number] Mauro Patton, PT [facility] [address] [place] [address] 03/19/2025 06:54:44 03/19/2025 07:47:45 Aftercare [id number] Z47.1 Z96.093 [id number] Marek Scafuri, ETCHER ENAMELING [facility] [address] [place] [address] 03/25/2025 17:04:37 03/26/2025 06:48:37 Aftercare [id number] Z47.1 Z96.069 [id number] Marek Scafuri, ETCHER ENAMELING [facility] [address] [place] [address] 03/28/2025 14:16:37 03/28/2025 15:04:25 Aftercare [id number] Z47.1 Z96.375 [id number] Marek Scafuri, ETCHER ENAMELING [facility] [address] [place] [address] 04/01/2025 14:47:16 04/01/2025 16:22:39 Aftercare [id number] Z47.1 Z96.492 [id number] Marek Scafuri, ETCHER ENAMELING [facility] [address] [place] [address] 04/04/2025 15:05:01 04/04/2025 16:25:30 Aftercare [id number] Z47.1 Z96.281 [id number] Mauro Patton, PT [facility] [address] [place] [address] 04/09/2025 13:05:16 04/09/2025 14:30:18 Aftercare [id number] 47.1 Z96.679 [id number] Mauro Patton, PT [facility] [address] [place] [address] 04/11/2025 13:19:23 04/11/2025 14:33:39 Aftercare [id number] 47.1 Z96.743 [id number] Mauro Patton, PT [facility] [address] [place] [address] 04/16/2025 14:17:01 04/16/2025 16:24:58 Aftercare [id number] Z47.1 Z96.922 [id number] Marek Scafuri, ETCHER ENAMELING [facility] [address] [place] [address] 04/22/2025 17:13:47 04/22/2025 17:53:43 Aftercare [id number] [facility].1 Z96.121 [id number] Catherine Fisher MD [facility] [address] [place] [address] 05/02/2025 14:02:55 05/13/2025 09:52:17 History of artificial joint [id number] Z96.60 [id number] Marek Scafuri, ETCHER ENAMELING [facility] [address] [place] [address] 04/24/2025 17:20:45 04/24/2025 18:23:07 Aftercare [id number] Z47.1 Z96.451 [id number] Mauro Patton, PT [facility] [address] [place] [address] 04/29/2025 13:55:07 04/29/2025 14:22:45 Aftercare [id number] Z47.1 Z96.640 [id number] Marek Scafuri, ETCHER ENAMELING [facility] [address] [place] [address] 04/30/2025 14:45:33 04/30/2025 16:36:08 Aftercare [id number] Z47.1 Z96.433 [id number] Marek Salinas, ETCHER ENAMELING [facility] [address] [place] [address] 05/06/2025 13:51:36 05/06/2025 14:32:58 Aftercare [id number] Z47.1 Z96.766 [id number] Mauro Patton, PT [facility] [address] [place] [address] 05/08/2025 12:57:27 05/08/2025 14:22:06 Aftercare [id number] Z47.1 Z96.641 [id number] Marek Salinas, ETCHER ENAMELING [facility] [address] [place] [address] 05/12/2025 14:56:01 05/12/2025 15:21:05 Aftercare [id number] Z47.1 Z96.429 [id number] Marek Salinas, ETCHER ENAMELING [facility] [address] [place] [address] 05/15/2025 12:31:54 05/15/2025 16:57:02 Aftercare [id number] 47.1 Z96.846 [id number] José Trevino PA-C [facility] [address] [place] [address] 07/28/2025 13:44:00 08/05/2025 08:54:08 Greater trochanteric pain syndrome 6812064 M70.62 [id number] Health Concerns Section Related Observation LastModified by Organization Detai ls LastModified Time None Recorded Concern Status LastModified by Organization Details LastModified Time None Recorded Advance Directives Directive None Recorded Payers Insurance Date Sequence Insurance Name Policy Number Policy Hua Covered Member ID Hua Member ID Guarantor Name 08/05/[address] [facility] (MEDICARE REPLACEMENT/A DVANTAGE - PPO) [id number] Monica Hammfernando [id number] Monica Castillo Yahir Notes Date Note Type Note Provider Name and Address Organization Details Recorded Time 05/06/2025 text/html Patient states pain 4/10 at rest. Mauro Patton, PT [address], [place], [address], [facility] 05/07/2025 06:42:10 05/08/2025 text/html Patient states pain 0/10 at rest. Mauro Patton, PT [address], [place], [address], [facility] 05/09/2025 04:30:47 05/12/2025 text/html Patient states pain 0/10 at rest. Mauro Patton, PT [address], [place], [address], [facility] 05/13/2025 04:00:50 05/15/2025 text/html Patient states pain 0/10 at rest. Marek Salinas, ETCHER ENAMELING [address], [place], [address], [facility] 05/15/2025 15:18:04 07/28/2025 text/html I am seeing the patient today under the supervision of Dr. Fisher who was available but who did not see the patient.HPI: Monica presents examination of her left hip. 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 She has had intermittent injections in times past. Continues to have pain across the lateral hip, worse with climbing and descending stairs or direct pressure on the hip sleeping at night. She denies any trauma or injury. She denies any paresthesias or paralysis or radiating symptoms down the leg.Past family, medical, social history and review of systems has been reviewed, updated and signed by me and is located in the patient s chart.PHYSICAL EXAMINATION: The patient is well appearing and in no apparent distress. Alert and oriented x3. Gait is symmetric.Left hip: Comfortable full range of motion without limitation or pain. Negative log rolling. Moderate tenderness to palpate across the greater trochanteric area. 5/5 strength throughout. 2+ pulsesPeripheral, vascular, lymphatic examination, skin, neurological, coordination, reflexes, sensation are within normal limits.IMPRESSION: Left greater trochanteric bursitisPLAN: Reviewed and discuss treatment options. Elected to proceed with an injection. Kenalog lidocaine combination was injected into the left greater trochanter region. Tolerated this well will follow up with as needed. José Trevino PA-C [address] [facility] [address], [place], [address], [facility] 07/28/2025 14:03:41 OBGyn Episode No OBEpisode recorded.
--- OUTSIDE RECORDS SUMMARY | 2025-08-06 16:43 | XMS_ITS | Encounter Summary ---
Author Organization [facility] Address [address] [place] [address] Care Team Providers Care Pay Agent Name Role Phone Annita Brewer MD Primary Care Provider [phone] Reason for Referral * Imaging (Routine) - Closed Specialty Diagnoses / Procedures Referred By Milagro patrick Referred To Contact Diagnostic Radiology Procedures MRI Brain without IV Contrast and MRA Head without IV Contrast [facility] SCHEDUL[facility] [address] [place] [address] Phone: tel: Referral ID Status Reason Start Date Expiration Date Visits Re quested Visits Authorized [id number] Closed 08/12/2022 08/12/2023 1 1 Encounter Details Date Type Department Care Team ([facility] st Contact Info) Description 08/12/2022 Scanned Document [facility] [address] [place] [address] Malcolm Arroyo . Social History Tobacco Use [...] L MRA HEAD WO IV CONTRAST Routine 08/08/2022 documented in this encounter Results * MRI Brain without IV Contrast and MRA Head without IV Contrast (08/08/2022) Anatomical Region Laterality Modality Head, Vascular, Ortho Head, RCC Brain Magnetic Resonance us Historical Provider IMG MRI ORDERABLES Final Res ult documented in this encounter Visit Diagnoses Not on filedocumented in this encounter Care Teams Pay Agent Relationship Specialty Start Date End Date Annita Brewer MD PCP - General Internal Medicine 01/03/19 documented as of this encounter
--- OUTSIDE RECORDS SUMMARY | 2025-08-06 16:44 | XMS_ITS | Data Portability ---
Author Organization [place] [facility], Allergy Address [address] [place] [address] Assessment No assessment recorded. Plan of Treatment Reminders Order Date Submit Date Provider Last Modified By Organization Details Last Modified Time Details Appointments Hearing Test First 2025 09:30A M Hearing Test Not available Not available Not available Establish ed 30 2025 10:00A M DEREJE Lauren MD Not available Not available Not available Lab None recorded. Referral None recorded. Procedures None recorded. Surgeries None recorded. Imaging None recorded. Medication Orders None recorded. Patient TargetsNo targets recorded. Patient InstructionsNo instructions recorded. Reason for Referral None Reported. Problems Name Problem SNOMED Code Status Onset Date Resolution Date Notes Provider Name and Address Organization Details Recorded Time Posterior rhinorrhe a [id number] Active 2017 Postnasal drip; Note: Date Diagnosed : 05/21/2018 10:46 AM (R09.82) Not Available [facility] 03:23:16 Impacted cerumen in right ear 34499238676 29343 Active 2017 Impacted cerumen, right ear; Note: Date Diagnosed : 05/21/2018 10:44 AM (H61.21) Not Available [facility] 03:23:16 Cough 98449457 Active 2017 Cough; Note: Date Diagnosed : 05/21/2018 10:44 AM (R05) Not Available [facility] 03:23:15 Impacted cerumen of bilateral ears 34147646373 69899 Active 2020 Impacted cerumen, bilateral ; Note: Date Diagnosed : 1 2:10 PM (H61.23) DEREJE SOUSA MD [address], [place], [address] , [facility] 08:40:19 Otalgia of left ear 4598833137 Active 2024 DEREJE SOUSA MD [address], [place], [address] , [facility] - [facility] 08:40:26 Problem Notes None recorded. Procedures Surgical History Date Name Laterality Status Provider Name and Address Organization Details Recorded Time 07/28/20 25 Cerumen removal with microscope bilateral completed DEREJE SOUSA MD [address] [facility] [address], [place], [address], [facility] - [facility] 07/28/2025 08:40:55 total shoulder replacement completed Jethro Goodson [place] [facility] 07/28/2025 08:38:45 Imaging Results None recorded. Procedure Notes None recorded. Medical Equipment None Reported. Allergies No known drug allergies Medications Name Sig Start Date Stop Date Status Note LastModified by Organization Details LastModified Time amoxicill in 500 mg capsule TAKE 4 TABS 1 HOUR BEFORE TO DENTAL APPOINTM ENT 07/28 completed Not Available Not Available Not Available valacyclo vir 1 gram tablet 2020 active Medicati on ID: [id number] B rand Name: valacycl ovir Sen d Method: E-Prescr ibed Sub s Allowed: subs OK Medic ationGen ericName : valacycl ovir Not Available Not Available Not Available meloxicam 15 mg tablet TAKE 1 TABLET BY MOUTH EVERY DAY AFTER MEALS 07/28 completed Not Available Not Available Not Available prednison e 20 mg tablet TAKE 2 TABLETS BY MOUTH EVERY DAY FOR 3 DAYS 07/28 completed Not Available Not Available Not Available valacyclo vir 500 mg tablet TAKE 1 TABLET BY MOUTH TWICE A DAY FOR 3 DAYS 07/28 completed Not Available Not Available Not Available hydrocodo ne 10 mg-acetam inophen 325 mg tablet 2020 active Medicati on ID: [id number] B rand Name: hydrocod one-acet aminophe n Send Method: E-Prescr ibed Sub s Allowed: subs OK Medic ationGen ericName : hydrocod one-acet aminophe n Not Available Not Available Not Available aspirin 81 mg tablet,de layed release 2017 active Medicati on ID: [id number] B rand Name: aspirin Send Method: E-Prescr ibed Sub s Allowed: subs OK Medic ationGen ericName : aspirin Not Available Not Available Not Available tramadol 50 mg tablet TAKE 1 TABLET BY MOUTH EVERY 6 HOURS active Not Available Not Available No t Available betametha sone, augmented 0.05 % lotion APPLY TO AFFECTED AREAS OF THE EARS ONCE TO TWICE DAILY FOR 2 WEEKS ON, 1 WEEK OFF. REPEAT NEEDED active Not Available Not Available No t Available ofloxacin 0.3 % ear drops INSTILL 10 DROPS INTO AFFECTED EAR EVERY DAY FOR 7 DAYS 07/28 completed Not Available Not Available Not Available gabapenti n 300 mg capsule TAKE 2 CAPSULE ORALLY ONCE A DAY AT BEDTIME 30 DAYS 07/28 completed Not Available Not Available Not Available estradiol 0.01% (0.1 mg/gram) vaginal cream PLEASE SEE ATTACHED FOR DETAILED DIRECTIO NS active Not Available Not Available No t Available methylpre dnisolone 4 mg tablets in a dose pack TAKE 6 TABLETS ON DAY 1 DIRECTED ON PACKAGE AND DECREASE BY 1 TAB EACH DAY FOR A TOTAL OF 6 DAYS 07/28 completed Not Available Not Available Not Available multivita min capsule 2017 active Medicati on ID: [id number] B rand Name: multivit douglass Sen d Method: E-Prescr ibed Sub s Allowed: subs OK Medic ationGen ericName : multivit douglass Not Available Not Available Not Available betametha sone dipropion ate 0.05 % lotion 2020 active Medicati on ID: [id number] B rand Name: betameth asone dipropio jillian Sen d Method: E-Prescr ibed Sub s Allowed: subs OK Medic ationGen ericName : betameth asone dipropio jillian Not Available Not Available Not Available finasteri de 5 mg tablet 10/13 completed Medicati on ID: [id number] D uration Value: 90 Brand Name: finaster nemesio Send Method: E-Prescr ibed Sub s Allowed: subs OK Medic ationGen ericName : finaster nemesio Not Available Not Available Not Available diazepam 5 mg tablet TAKE 1 TABLET BEFORE BEDTIME ON THE NIGHT BEFORE SURGERY active Not Available Not Available No t Available ramipril 10 mg capsule TAKE 1 CAPSULE BY MOUTH EVERY DAY active Not Available Not Available No t Available Vitamin D3 25 mcg (1,000 unit) capsule 2017 active Medicati on ID: [id number] B rand Name: Vitamin D3 Send Method: E-Prescr ibed Sub s Allowed: subs OK Medic ationGen ericName : Vitamin D3 Not Available Not Available Not Available rosuvasta tin 20 mg tablet TAKE 1 TABLET DAILY active Not Available Not Available No t Available BD Ultra-Fin e Mini Pen Needle 31 gauge x 3/16 2020 active Medicati on ID: [id number] B rand Name: BD Ultra-Fi ne Mini Pen Needle S end Method: E-Prescr ibed Sub s Allowed: subs OK Medic ationGen ericName : BD Ultra-Fi ne Mini Pen Needle Not Available Not Available Not Available bimatopro st 0.03 % drops with applicato r, eyelash base USE 1 APPLICAT ION ALONG UPPER EYELID MARGIN AT BASE OF EYELASHE S EXTERNAL LY ONCE A DAY active Not Available Not Available No t Available Anoro Ellipta 62.5 mcg-25 mcg/actua tion powder for inhalatio n 10/13 completed Medicati on ID: [id number] D uration Value: 30 Brand Name: Anoro Ellipta Send Method: E-Prescr ibed Sub s Allowed: subs OK Medic ationGen ericName : Anoro Ellipta Not Available Not Available Not Available Vitals Date Recorded Body height Body mass index (BMI) Body weight Provider Name and Address Organization Details Last Updated DateTime 07/28/2025 165.1 cm 26 kg/m2 69891.41 g Jethro Goodson [place] [facility] 07/28/2025 08:37:05 Social History None recorded. Functional Status None recorded. Mental Status None recorded. Family History Nothing Reported. Medical History Condition Response Hearing Loss Y Gynecological HistoryNo gynecological history recorded. Obstetrics History GPAL:G 0 P 0 0 0 0 Past Encounters Encounter ID Performer Location Encounter Start Date Encounter Closed Date Diagnosis/Indication Diagnosis SNOMED-CT Code Diagnosis ICD10 Code Diagnosis IMO Codes Diagnosis Note [id number] DEREJE SOUSA MD [facility] on [address] [place] [address] 07/28/2025 08:18:05 07/28/2025 08:46:42 Impacted cerumen of bilateral ears [id number] 530975 H61.23 567380 Recurrent Cerumen Impactions : Ears were meticulous ly cleaned bilaterall y today with fine pics and suction. Patient is encouraged to avoid Q-tips in his ears relative to packing the wax in tighter. Yearly visits or as needed are [place]. Otalgia of left ear 1010 629573 H92.02 [id number] No evidence of OE or OM. Debrided a complete impaction. She noted improvemen t afterwards . I asked her to call back if not improved. I recommend observatio n. Health Concerns Section Related Observation LastModified by Organization Detai ls LastModified Time None Recorded Concern Status LastModified by Organization Details LastModified Time None Recorded Advance Directives Directive None Recorded Payers Insurance Date Sequence Insurance Name Policy Number Policy Hua Covered Member ID Hua Member ID Guarantor Name 07/28/2025 1 [facility] (MEDICARE REPLACEMENT/A DVANTAGE - PPO) [id number] Monica Sinclair [id number] Monica Sinclair Notes Date Note Type Note Provider Name and Address Organization Details Recorded Time 07/28/2025 text/html ROS as noted in the HPI She was seen by her PCP. Noted to have cerumen impacted by her PCP. Went to urgent care and had the ears irrigated. Had significant pain . Denies problems hearing. DEREJE SOUSA MD [address] [place] [address], [place], [address], [facility] - [facility] 07/28/2025 08:48:12 OBGyn Episode No OBEpisode recorded.
== END 2025-08-06 13:01 | disposition home or self-care (01) ==
LOC: HO.NEURO 13:00
PROVIDERS: PCP Internal Medicine; Visit Provider Internal Medicine
DX: G60.3 Idiopathic progressive neuropathy (principal)
CPT/HCPCS: 95886; 95911

== ENCOUNTER → 2025-08-06 13:04 | Outpatient (BNV) | payer MEDICARE, SELFPAY | PROVIDERS: PCP Internal Medicine; Visit Provider Physical Medicine & Rehabilitation | DX: G56.13 Other lesions of median nerve, bilateral upper limbs (principal); G56.23 Lesion of ulnar nerve, bilateral upper limbs | CPT/HCPCS: 95886; 95911 ==